=== PATIENT | male | born 1965 | race Caucasian/White ===

== ENCOUNTER 2021-04-01 14:18 | Inpatient (IN) ==
[2021-04-01] MEDS ORDERED: PROMETHAZINE 25 MG/ML VIAL IV PRN (16:07)
[2021-04-01] MEDS ORDERED: ACETAMINOPHEN 325 MG TABLET PO PRN (16:07)
[2021-04-01] MEDS ORDERED: oxyCODONE/APAP 5/325MG TABLET PO PRN (16:07)
[2021-04-01] MEDS ORDERED: morphine 4 MG/ML VIAL IV PRN (16:07)
[2021-04-01] MEDS ORDERED: BISACODYL 10 MG SUPP.RECT PR PRN (16:07)
[2021-04-01] MEDS ORDERED: ONDANSETRON 4 MG/2 ML VIAL IV PRN (16:07)
[2021-04-01] MEDS ORDERED: ZOLPIDEM 5 MG TABLET PO PRN (16:12)
[2021-04-01] MEDS ORDERED: CEFEPIME 1 GM VIAL IV SCH (16:15)
[2021-04-01] MEDS ORDERED: hydrALAZINE 20 MG/ML VIAL IV PRN (16:28)
[2021-04-01] MEDS ORDERED: VANCOMYCIN 1,000 MG in 0.9 % SODIUM CHLORIDE 250 ML IV SCH (16:30)
--- NOTE | 2021-04-01 16:35 | Internal Med History&Physical ---
HPI History of Present Illness Patient information: Note initiated : 04/01/21 at 4:29 pm Service Date, if different from initiated Date: [] Patient: Jb Ghotra a 55 y/o M admitted on 04/01/21 for CHF, Wounds. Chief Complaint: [left lower extremity cellulitis and diastolic CHF exacerbation.] History of present illness: Mr. Ghotra is a 55 year old M history of diastolic CHF, chronic bilateral lower extremity swelling, presenting with a couple day history of acute on chronic shortness of breath as well as 3 months history of worsening swelling and skin breakdown of the left lower extremities. Patient is complaining of acute on chronic shortness of breath over the past couple of days and he does not use oxygen at home. He denies any cough, chest pain, wheezing, or sputum production. He denies any fever or chills. In addition, he noticed worsening swelling, skin breakdown, as well as burning pain 7 out of 10 constant of his left lower extremities. He has not been treated with antibiotics. He presented to [facility] ER for his symptoms and he was admitted on March 31, 2021. The general surgeons was consulted and he recommended patient is to be transferred to our facility for dedicated wound care consult. Constitutional Constitutional: Absent chills, excessive sweating, fatigue, fever(s) and weakness EENT Eyes: Absent blurry vision, change in vision, loss of vision and other visual disturbances Ears: Absent decreased hearing and tinnitus Nose, mouth and throat: Absent abnormal hearing, dry mouth, headache(s), nasal congestion and sore throat Cardiovascular Cardiovascular: Absent chest pain, chest pain at rest, edema, irregular heart rhythm and palpatations Respiratory Respiratory: Present dyspnea; Absent cough and wheezing Gastrointestinal Gastrointestinal: Absent abdominal pain, constipation, diarrhea, nausea and vomiting Musculoskeletal Musculoskeletal: Absent back pain, deformity, limited range of motion, muscle cramps, muscle weakness and numbness Integumentary Integumentary: Present changing lesions, lesions, skin ulcer, swelling and wounds; Absent rash Additional comments: foul smelling Neurological Neurological: Absent focal weakness, headache(s) and numbness Psychiatric Psychiatric: Absent anxiety, depression and hallucinations PFSH PFSH All Active Problems (Updated 04/01/21 @ 16:30 by Ayaz Maguire MD) Left leg cellulitis (Acute) Cellulitis of both lower extremities (Acute) Acute on chronic diastolic (congestive) heart failure (Acute) Morbid obesity (Acute) MEDS/ALLERGIES Home Medications and Allergies Allergies Allergy/AdvReac Type Severity Reaction Status Date / Time No Known Allergies Allergy Verified 04/01/21 16:19 EXAM Constitutional General appearance: cooperative and no acute distress Head Head exam: Present atraumatic and normocephalic Additional comments: nasal cannula in place Eye Eye exam: Present EOMI and PERRL ENT ENT exam: Present mucous membranes moist, normal exam and normal external ear exam Neck Neck exam: Present normal inspection; Absent lymphadenopathy, tenderness and thyromegaly Respiratory Respiratory exam: Present decreased breath sounds; Absent accessory muscle use, respiratory distress and wheezes Cardiovascular Cardiovascular exam: Present normal rate and rhythm; Absent JVD GI/Abdominal GI/Abdominal exam: Present normal bowel sounds and soft; Absent organomegaly and tenderness Additional comments: Intertrigo rash of skin fold under the abdomen skin Rectal Rectal exam: Present deferred Additional comments: Castillo catheter in place Extremities Exam Extremities exam: Present full ROM, normal capillary refill and normal inspection; Absent tenderness Neurological Exam Neurological exam: Present alert, CN II-XII intact and oriented X3; Absent motor sensory deficit Psychiatric Psychiatric exam: Present normal affect and normal mood; Absent anxious and depressed Skin Skin exam: Present erythema; Absent intact Additional comments: Indurated, erythematic, swelling, and tenderness to palpation of the left lower extremities with multiple ulcers and foul smelling. Indurated and swelling of right lower extremity. A/P Assessment and plan (1) Acute on chronic diastolic (congestive) heart failure: Status: Acute (2) Left leg cellulitis: Status: Acute (3) Morbid obesity: Status: Acute Narrative A/P Narrative: Assessment and Plans: 1. Acute on chronic CHF exacerbation: Admit to inpatient telemetry Intake and output Daily weigh 2L/d fluid restriction Supplemental oxygen via nasal cannula titrate to achieve oxygen saturation >=92% 2D echocardiogram: Good systolic function with LVEF 55-60%, signs of diastolic dysfunction and pulmonary HTN Lasix 40mg IV BID Lisinopril 2.5mg PO daily Add beta madhavi when patient is out of exacerbation phrase Physical and occupational therapies 2. Left lower extremity cellulitis: Blood culture X2 Wound culture Serial lactic acid Procalcitonin level Vancomycin IV Percocet PRN moderate pain Morphine IV PRN severe pain Tylenol PRN fever cbc w/ auto diff in the morning to trend WBC level Consult wound care team Dr. Molina, recs. appreciated 3. Morbid obesity: Emergency Room Physician patient on the importance of life style modifications such as healthy diet and regular exercise in order to lose weight GI ppx: not currently indicated DVT ppx: Lovenox Code status: Full Prognosis: guarded Disposition: inpatient med surg tele; PT OT Time Spent With Patient Time: Total time spent is greater than 50% in coordination of care (as documented) at patient's floor/unit and/or counseling patient: Total time spent with greater than 50% in coordination of care (as documented) at patient's floor/unit and/or counseling patient:: 25 - 35 minutes
[2021-04-01] MEDS ORDERED: VANCOMYCIN PER PHARMACY IV SCH (17:00)
[2021-04-01] MEDS: FUROSEMIDE 40 MG/4 ML VIAL IV SCH (21:00)
[2021-04-01] MEDS: VANCOMYCIN 1,500 MG in 0.9 % SODIUM CHLORIDE 500 ML IV SCH (21:01)
[2021-04-01] MEDS: DOCUSATE SODIUM 100 MG CAPSULE PO SCH (21:09)
[2021-04-01] MEDS: SENNOSIDES 1 TABLET PO SCH (21:09)
[2021-04-01] MEDS: 0.9 % SODIUM CHLORIDE 10 ML SYRINGE IV SCH (21:09)
[2021-04-02] MEDS: 0.9 % SODIUM CHLORIDE 10 ML SYRINGE IV SCH ×3 (06:06→20:55)
[2021-04-02 06:42] LABS: Basophils # (Auto) 0.07 K/mcL (0.00-0.20); Basophils % (Auto) 0.5 % (0.0-2.0); Eosinophils % (Auto) 0.7 % (0.0-7.0); Hematocrit 39.3 % (41.0-55.0); Hemoglobin 10.8 g/dL (13.5-16.5); Lymphocytes # (Auto) 2.84 K/mcL (1.50-4.80); Lymphocytes % (Auto) 19.8 % (15.0-49.0); Mean Cell Volume 76.3 fL (80.0-100.0); Mean Corpuscular HGB Conc 27.5 g/dL (31.0-36.0); Mean Platelet Volume 9.9 fL (7.4-10.4); Monocytes # (Auto) 0.86 K/mcL (0.10-0.90); Platelet Count 299 K/mcL (140-440); RBC 5.15 M/mcL (4.50-5.90); Red Cell Distribution Width 18.6 % (11.5-14.5); WBC 14.3 K/mcL (4.5-11.0)
[2021-04-02 06:59] LABS: ALT/SGPT < 5 U/L (<40); AST/SGOT 8 U/L (<40); Albumin 2.6 gm/dL (3.2-5.2); Albumin/Globulin Ratio 1.2 (1.0-2.3); Alkaline Phosphatase 73 U/L (39-117); Bilirubin,Total 0.7 mg/dL (0.1-1.0); Blood Urea Nitrogen 11 mg/dL (6-20); Calcium 8.1 mg/dL (8.6-10.4); Carbon Dioxide 27 mmol/L (22-30); Chloride 100 mmol/L (96-108); Globulin 2.1 gm/dL (2.2-3.7); Glomerular Filtration Rate 99; Glucose 90 mg/dL (70-105)
[2021-04-02] MEDS: DOCUSATE SODIUM 100 MG CAPSULE PO SCH ×2 (08:20→19:44)
[2021-04-02 08:27] LABS: Erythrocyte Sedimentation Rate 3 mm/hr (0-15)
[2021-04-02] MEDS: ENOXAPARIN 40 MG/0.4 ML SYRINGE SQ SCH (08:59)
[2021-04-02] MEDS: ASPIRIN 81 MG TAB.CHEW PO SCH (08:59)
[2021-04-02] MEDS: LISINOPRIL 2.5 MG TABLET PO SCH (08:59)
[2021-04-02] MEDS: FUROSEMIDE 40 MG/4 ML VIAL IV SCH ×2 (08:59→20:55)
[2021-04-02] MEDS: VANCOMYCIN 1,500 MG in 0.9 % SODIUM CHLORIDE 500 ML IV SCH ×2 (09:00→20:55)
[2021-04-02] MEDS ORDERED: IBUPROFEN 200 MG TABLET PO PRN (09:27)
--- NOTE | 2021-04-02 09:32 | General Surgery Consult Note ---
HPI Data of Consult Consult date: 04/02/21 Primary Care Provider: Unknown Unknown Family Provider: I saw this patient in consultation, along with Presley Fierro RN, In Patient Wound Care Nurse. Reviewed EHR details and examined patient in Room 108, along with Dionna CHAVIS. Consult Narrative Patient Information: Note initiated : 04/02/21 at 9:24 am Service Date, if different from initiated Date: [] Patient: Jb Ghotra 55 y/o M admitted on 04/01/21 for CHF, Wounds. Chief Complaint: [] cc:: CC: Ayaz Maguire MD Constitutional Constitutional: Present weight gain and other (Drainage of lymphatic fluid from edematous legs and feet. ) Cardiovascular Cardiovascular: Present as per HPI, dyspnea on exertion, edema, leg edema and other (DIASTOLIC CHF. ) Integumentary Integumentary: Present lesions (Dry crusted scattered scales dermatitis of both legs and feet. ) and wounds (Drainage of lymphatic fluid from stage 1 skin abrasions, epidermal ulcers between scales WITHOUT purulence. CHRONIC skin contamination. ) PFSH PFSH All Active Problems Hypocalcemia (Acute) Hypochromic microcytic anemia (Acute) Atrial fibrillation (Acute) Left leg cellulitis (Acute) Cellulitis of both lower extremities (Acute) Acute on chronic diastolic (congestive) heart failure (Acute) Morbid obesity (Acute) MEDS/ALLERGIES Home Medications and Allergies Home Medications Medication Instructions Recorded Confirmed Type furosemide 40 - 60 mg PO DAILY MDD 60 04/01/21 04/01/21 History ibuprofen [Advil] 200 mg PO Q6H PRN MDD 800 04/01/21 04/01/21 History Allergies Allergy/AdvReac Type Severity Reaction Status Date / Time No Known Allergies Allergy Verified 04/01/21 16:19 Physical Examination Vital Signs Vital signs: Temp Pulse Resp BP Pulse Ox 97.7 F 85 18 150/89 91 04/02/21 08:00 04/02/21 08:00 04/02/21 08:00 04/02/21 08:00 04/02/21 08:00 Results Labs Result diagrams: 04/02/21 05:18 04/02/21 05:18 Labs: Abnormal lab results 04/02/21 04/02/21 Range/Units 05:18 05:18 WBC 14.3 H (4.5-11.0) K/mcL Hgb 10.8 L (13.5-16.5) g/dL Hct 39.3 L (41.0-55.0) % MCV 76.3 L (80.0-100.0) fL MCH 21.0 L (26.0-34.0) pg MCHC 27.5 L (31.0-36.0) g/dL RDW 18.6 H (11.5-14.5) % Absolute Neutrophils 10.44 H (1.80-8.00) K/mcL Calcium 8.1 L (8.6-10.4) mg/dL Total Protein 4.7 L (5.9-8.4) gm/dL Albumin 2.6 L (3.2-5.2) gm/dL Globulin 2.1 L (2.2-3.7) gm/dL Diabetes panel 04/02/21 Range/Units 05:18 Sodium 138 (133-145) mmol/L Potassium 3.4 (3.3-5.1) mmol/L Chloride 100 (96-108) mmol/L Carbon Dioxide 27 (22-30) mmol/L BUN 11 (6-20) mg/dL Creatinine 0.8 (0.7-1.2) mg/dL Glucose 90 (70-105) mg/dL Calcium 8.1 L (8.6-10.4) mg/dL AST 8 (<40) U/L ALT < 5 (<40) U/L Alkaline Phosphatase 73 (39-117) U/L Total Protein 4.7 L (5.9-8.4) gm/dL Albumin 2.6 L (3.2-5.2) gm/dL Calcium panel 04/02/21 Range/Units 05:18 Calcium 8.1 L (8.6-10.4) mg/dL Albumin 2.6 L (3.2-5.2) gm/dL Pituitary panel 04/02/21 Range/Units 05:18 Sodium 138 (133-145) mmol/L Potassium 3.4 (3.3-5.1) mmol/L Chloride 100 (96-108) mmol/L Carbon Dioxide 27 (22-30) mmol/L BUN 11 (6-20) mg/dL Creatinine 0.8 (0.7-1.2) mg/dL Glucose 90 (70-105) mg/dL Calcium 8.1 L (8.6-10.4) mg/dL Adrenal panel 04/02/21 Range/Units 05:18 Sodium 138 (133-145) mmol/L Potassium 3.4 (3.3-5.1) mmol/L Chloride 100 (96-108) mmol/L Carbon Dioxide 27 (22-30) mmol/L BUN 11 (6-20) mg/dL Creatinine 0.8 (0.7-1.2) mg/dL Glucose 90 (70-105) mg/dL Calcium 8.1 L (8.6-10.4) mg/dL Total Bilirubin 0.7 (0.1-1.0) mg/dL AST 8 (<40) U/L ALT < 5 (<40) U/L Alkaline Phosphatase 73 (39-117) U/L Total Protein 4.7 L (5.9-8.4) gm/dL Albumin 2.6 L (3.2-5.2) gm/dL All other labs normal. A/P Time Spent With Patient Time: Total time spent is greater than 50% in coordination of care (as documented) at patient's floor/unit and/or counseling patient:
--- NOTE | 2021-04-02 09:32 | Internal Med Progress Note ---
SUBJECTIVE Subjective Patient information: Note initiated : 04/02/21 at 9:28 am Service Date, if different from initiated Date: [] Patient: Jb Ghotra 55 y/o M admitted on 04/01/21 for CHF, Wounds. Chief Complaint: [CHF exacerbation, left leg cellulitis] 04/02/21: Patient is c/o mild to moderate burning pain of his left lower leg. c/o SOB. Still on 4L/min oxygen. Denies chest pain. Denies fever or chills or sweating. Wound and blood cultures no growth to date. Constitutional Vitals: Vital Signs Temp Pulse Resp BP Pulse Ox 36.5 C 85 18 150/89 91 04/02/21 08:00 04/02/21 08:00 04/02/21 08:00 04/02/21 08:00 04/02/21 08:00 Period Temp Pulse Resp BP Sys/Moya Pulse Ox Last 24 Hr 36.5 C-37.4 C 77-86 18-24 114-150/68-89 91-96 Intake and Output 04/01/21 04/02/21 04/02/21 21:59 05:59 13:59 Intake Total 400 650 480 Output Total 1800 300 Balance 400 -1150 180 Weight 224 kg Intake & Output: Intake & Output 04/01/21 04/02/21 04/02/21 21:59 05:59 13:59 Intake Total 400 650 480 Output Total 1800 300 Balance 400 -1150 180 Weight 224 kg Intake: IV 500 Vancomycin 1,500 mg In Sodium 500 Chloride 0.9% 500 ml @ 333.3 mls/hr IV Q12H [facility] Rx#: [id number] Oral 400 150 480 Output: Urine Catheter Amount 1800 300 Other: Meal Dinner Breakfast Percent of Meal Consumed 100% Feeding Ability Independent Urine Appearance Clear Sediment Uretheral (Castillo) Clear Urine Color Dark Joyce Dark Yellow Dark Joyce Light Joyce Uretheral (Castillo) Dark Yellow Urine Odor Strong General appearance: cooperative and no acute distress Head Head exam: Present atraumatic and normocephalic Eye Eye exam: Present EOMI and PERRL ENT ENT exam: Present mucous membranes moist, normal exam and normal external ear exam Additional comments: Nasal cannula in place Neck Neck exam: Present normal inspection; Absent lymphadenopathy, tenderness and thyromegaly Respiratory Respiratory exam: Present normal respiratory exam; Absent accessory muscle use, respiratory distress, stridor and wheezes Cardiovascular Cardiovascular exam: Present normal rate and rhythm; Absent JVD GI/Abdominal GI/Abdominal exam: Present normal bowel sounds and soft; Absent organomegaly and tenderness Rectal Rectal exam: Present deferred Additional comments: Castillo catheter in place Extremities Exam Extremities exam: Present full ROM, normal capillary refill and normal inspection; Absent tenderness Neurological Exam Neurological exam: Present alert, CN II-XII intact and oriented X3; Absent motor sensory deficit Psychiatric Psychiatric exam: Present normal affect and normal mood; Absent anxious and depressed Skin Skin exam: Present erythema; Absent dry and intact Additional comments: Indurated, swollen, tenderness to palpation, erythematic skin changes of the left lower extremity with multiple skin ulcers and foul smelling. Indurated, swollen right lower extremity Intertrigo skin changes in the abdominal skin folds. OBJ DATA Labs CBC & Chem 7: 04/02/21 05:18 04/02/21 05:18 Labs: Abnormal Lab Results 04/02/21 04/02/21 05:18 05:18 WBC 14.3 H Hgb 10.8 L Hct 39.3 L MCV 76.3 L MCH 21.0 L MCHC 27.5 L RDW 18.6 H Absolute Neutrophils 10.44 H Calcium 8.1 L Total Protein 4.7 L Albumin 2.6 L Globulin 2.1 L Meds: Medications Acetaminophen (Acetaminophen 325 Mg Tablet) 650 mg PO Q6HP PRN; Protocol PRN Reason: Per Pain Protocol/Fever > 101 Aspirin (Aspirin 81 Mg Tab.Chew) 81 mg PO DAILY [facility] Last Admin: 04/02/21 08:59 Dose: 81 mg Documented by: Bisacodyl (Bisacodyl 10 Mg Supp.Rect) 10 mg ME Q2-3DAYS PRN PRN Reason: Constipation Calcium Carbonate/Glycine (Calcium Carbonate 500 Mg Tab.Chew) 500 mg PO BID [facility] Docusate Sodium (Docusate Sodium 100 Mg Capsule) 100 mg PO BID [facility] Last Admin: 04/02/21 08:20 Dose: Not Given Documented by: Enoxaparin Sodium (Enoxaparin 40 Mg/0.4 Ml Syringe) 40 mg SQ DAILY [facility] Last Admin: 04/02/21 08:59 Dose: 40 mg Documented by: Furosemide (Furosemide 40 Mg/4 Ml Vial) 40 mg IV Q12 [facility] Last Admin: 04/02/21 08:59 Dose: 40 mg Documented by: Hydralazine HCl (Hydralazine 20 Mg/Ml Vial) 10 mg IV Q4-6HP PRN PRN Reason: Hypertension Vancomycin HCl 1,500 mg/ (Sodium Chloride) 500 mls @ 333.3 mls/hr IV Q12H [facility] Last Admin: 04/02/21 09:00 Dose: 333.3 mls/hr Documented by: Ibuprofen (Ibuprofen 200 Mg Tablet) 200 mg PO Q6HP PRN PRN Reason: Pain Lisinopril (Lisinopril 2.5 Mg Tablet) 2.5 mg PO DAILY [facility] Last Admin: 04/02/21 08:59 Dose: 2.5 mg Documented by: Morphine Sulfate (Morphine 4 Mg/Ml Vial) 2 mg IV Q4HP PRN; Protocol PRN Reason: Per Pain Protocol Ondansetron HCl (Ondansetron 4 Mg/2 Ml Vial) 4 mg IV Q6HP PRN PRN Reason: Nausea And Vomiting Oxycodone/Acetaminophen (Oxycodone/Apap 5/325mg Tablet) 1 tab PO Q4HP PRN; Protocol PRN Reason: Per Pain Protocol Pneumococcal Polyvalent Vaccine (Pneumococcal 23-Airam P-Sac Vac 0.5 Ml Syringe) 0.5 ml IM .ONCE ONE Stop: 04/03/21 10:01 Promethazine HCl (Promethazine 25 Mg/Ml Vial) 12.5 mg IV Q6HP PRN PRN Reason: Nausea And Vomiting Senna (Sennosides 1 Tablet) 2 tab PO HS [facility] Last Admin: 04/01/21 21:09 Dose: Not Given Documented by: Sodium Chloride (0.9 % Sodium Chloride 10 Ml Syringe) 10 ml IV Q8 [facility] Last Admin: 04/02/21 06:06 Dose: Not Given Documented by: Vancomycin HCl (Vancomycin Per Pharmacy) 1 order IV UD [facility] Zolpidem Tartrate (Zolpidem 5 Mg Tablet) 5 mg PO HSP PRN PRN Reason: Insomnia A/P Assessment and plan (1) Morbid obesity: Status: Acute (2) Acute on chronic diastolic (congestive) heart failure: Status: Acute (3) Cellulitis of both lower extremities: Status: Acute (4) Left leg cellulitis: Status: Acute (5) Atrial fibrillation: Status: Acute (6) Hypochromic microcytic anemia: Status: Acute (7) Hypocalcemia: Status: Acute Narrative A/P Narrative: A/P Narrative: Assessment and Plans: 1. Acute on chronic CHF exacerbation: Stays in inpatient telemetry Intake and output Daily weigh 2L/d fluid restriction Supplemental oxygen via nasal cannula titrate to achieve oxygen saturation >=92% 2D echocardiogram: Good systolic function with LVEF 55-60%, signs of diastolic d ysfunction and pulmonary HTN Lasix 40mg IV BID, consider switching to oral Lasix tomorrow Lisinopril 2.5mg PO daily Add beta madhavi when patient is out of exacerbation phrase Physical and occupational therapies 2. Left lower extremity cellulitis: Blood culture X2 Wound culture Serial lactic acid Procalcitonin level Vancomycin IV Percocet PRN moderate pain Morphine IV PRN severe pain Tylenol PRN fever cbc w/ auto diff in the morning to trend WBC level Consult wound care team Dr. Molina, recs. appreciated Consult ID Dr. Luna, recs. appreciated 3. 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 Atrial fibrillation: [id number] score of 1 Add Aspirin, no anticoagulation at this point Add beta madhavi when it is over the CHF exacerbation phrase is over 5. Microcytic hypochromic anemia: cbc w/ auto diff in the morning to trend H/H; transfuse pRBC if hemoglobin <7.0, active bleeding, or symptomatic Iron panel Vitamin B12 level Folate level 6. Hypocalcemia: Calcium carbonate oral replacement GI ppx: not currently indicated DVT ppx: Lovenox Code status: Full Prognosis: guarded Disposition: inpatient med surg tele; PT OT Time Spent With Patient Time: Total time spent is greater than 50% in coordination of care (as documented) at patient's floor/unit and/or counseling patient: Total time spent with greater than 50% in coordination of care (as documented) at patient's floor/unit and/or counseling patient:: 15 - 24 minutes
[2021-04-02] MEDS: CALCIUM CARBONATE 500 MG TAB.CHEW PO SCH ×2 (09:40→20:55)
--- NOTE | 2021-04-02 09:59 | General Surgery Consult Note ---
HPI Data of Consult Consult date: 04/02/21 Primary Care Provider: Unknown Unknown Consult Narrative Patient Information: Note initiated : 04/02/21 at 9:48 am Service Date, if different from initiated Date: [] Patient: Jb Ghotra 55 y/o M admitted on 04/01/21 for CHF, Wounds. Chief Complaint: [] cc:: CC: Ayaz Maguire MD [facility] PFS All Active Problems Hypocalcemia (Acute) Hypochromic microcytic anemia (Acute) Atrial fibrillation (Acute) Left leg cellulitis (Acute) Cellulitis of both lower extremities (Acute) Acute on chronic diastolic (congestive) heart failure (Acute) Morbid obesity (Acute) MEDS/ALLERGIES Home Medications and Allergies Home Medications Medication Instructions Recorded Confirmed Type furosemide 40 - 60 mg PO DAILY MDD 60 04/01/21 04/01/21 History ibuprofen [Advil] 200 mg PO Q6H PRN MDD 800 04/01/21 04/01/21 History Allergies Allergy/AdvReac Type Severity Reaction Status Date / Time No Known Allergies Allergy Verified 04/01/21 16:19 Physical Examination Vital Signs Vital signs: Temp Pulse Resp BP Pulse Ox 97.7 F 85 18 150/89 91 04/02/21 08:00 04/02/21 08:00 04/02/21 08:00 04/02/21 08:00 04/02/21 08:00 General physical appearance General physical exam: no distress, no pain and other (SUPER MORBIDLY OBESE. Able to sit by the edge of bed, unassisted. ) Eyes Eye exam: PERRL and normal ocular movement ENT ENT exam: normal pinna, normal nares, no congestion and other (Oxygen by NC) Head Head exam IM: Present atraumatic and normocephalic Neck Neck exam: no masses and no venous distension Cardiovascular Cardiovascular exam IM: Present irregular rhythm Peripheral pulses: 0: dorsalis pedis (L) (Moderate /svere lymphedema of LLE), dorsalis pedis (R) (Moderate Lymphedema RLE), posterior tibialis (L) (As above) and posterior tibialis (R) (As above) Respiratory Respiratory exam: normal respiratory effort and other (Clear speech. Can count 1-20 and 10-1 without SOB. O2 by NC. No cougn, NO expectoration.) Abdomen Abdomen: Present soft and non tender Results Labs Result diagrams: 04/02/21 05:18 04/02/21 05:18 Labs: Abnormal lab results 04/02/21 04/02/21 Range/Units 05:18 05:18 WBC 14.3 H (4.5-11.0) K/mcL Hgb 10.8 L (13.5-16.5) g/dL Hct 39.3 L (41.0-55.0) % MCV 76.3 L (80.0-100.0) fL MCH 21.0 L (26.0-34.0) pg MCHC 27.5 L (31.0-36.0) g/dL RDW 18.6 H (11.5-14.5) % Absolute Neutrophils 10.44 H (1.80-8.00) K/mcL Calcium 8.1 L (8.6-10.4) mg/dL Total Protein 4.7 L (5.9-8.4) gm/dL Albumin 2.6 L (3.2-5.2) gm/dL Globulin 2.1 L (2.2-3.7) gm/dL Diabetes panel 04/02/21 Range/Units 05:18 Sodium 138 (133-145) mmol/L Potassium 3.4 (3.3-5.1) mmol/L Chloride 100 (96-108) mmol/L Carbon Dioxide 27 (22-30) mmol/L BUN 11 (6-20) mg/dL Creatinine 0.8 (0.7-1.2) mg/dL Glucose 90 (70-105) mg/dL Calcium 8.1 L (8.6-10.4) mg/dL AST 8 (<40) U/L ALT < 5 (<40) U/L Alkaline Phosphatase 73 (39-117) U/L Total Protein 4.7 L (5.9-8.4) gm/dL Albumin 2.6 L (3.2-5.2) gm/dL Calcium panel 04/02/21 Range/Units 05:18 Calcium 8.1 L (8.6-10.4) mg/dL Albumin 2.6 L (3.2-5.2) gm/dL Pituitary panel 04/02/21 Range/Units 05:18 Sodium 138 (133-145) mmol/L Potassium 3.4 (3.3-5.1) mmol/L Chloride 100 (96-108) mmol/L Carbon Dioxide 27 (22-30) mmol/L BUN 11 (6-20) mg/dL Creatinine 0.8 (0.7-1.2) mg/dL Glucose 90 (70-105) mg/dL Calcium 8.1 L (8.6-10.4) mg/dL Adrenal panel 04/02/21 Range/Units 05:18 Sodium 138 (133-145) mmol/L Potassium 3.4 (3.3-5.1) mmol/L Chloride 100 (96-108) mmol/L Carbon Dioxide 27 (22-30) mmol/L BUN 11 (6-20) mg/dL Creatinine 0.8 (0.7-1.2) mg/dL Glucose 90 (70-105) mg/dL Calcium 8.1 L (8.6-10.4) mg/dL Total Bilirubin 0.7 (0.1-1.0) mg/dL AST 8 (<40) U/L ALT < 5 (<40) U/L Alkaline Phosphatase 73 (39-117) U/L Total Protein 4.7 L (5.9-8.4) gm/dL Albumin 2.6 L (3.2-5.2) gm/dL All other labs normal. A/P Narrative A/P Narrative: Assessment: Super morbid obesity Diastolic CHF Lymphedema of LE. Left >> Right extends from thighs to toes. Dry scales Dermatitis / Nodules.Both LE Left >> Right Multiple chronic comorbidities. See PMH above. Patient received COVID shots X 2. Second dose in October 2020 Plan: Local wound Care as discussed with nursing staff See wound care orders. MIST with VASHE Bacitracin ointment to legs after VASHE treatment. Will follow patient along with Hospitalist Physician Time Spent With Patient Time: Total time spent is greater than 50% in coordination of care (as docum ented) at patient's floor/unit and/or counseling patient: Total time spent with greater than 50% in coordination of care (as documented) at patient's floor/unit and/or counseling patient:: Greater than 35 minutes
[2021-04-02] MEDS: SENNOSIDES 1 TABLET PO SCH (19:44)
[2021-04-03] MEDS: 0.9 % SODIUM CHLORIDE 10 ML SYRINGE IV SCH ×3 (05:37→21:00)
[2021-04-03 07:21] LABS: Basophils # (Auto) 0.06 K/mcL (0.00-0.20); Basophils % (Auto) 0.5 % (0.0-2.0); Eosinophils # (Auto) 0.19 K/mcL (0.00-0.70); Eosinophils % (Auto) 1.4 % (0.0-7.0); Hematocrit 39.3 % (41.0-55.0); Hemoglobin 10.7 g/dL (13.5-16.5); Lymphocytes # (Auto) 2.94 K/mcL (1.50-4.80); Lymphocytes % (Auto) 22.2 % (15.0-49.0); Mean Cell Volume 75.6 fL (80.0-100.0); Mean Corpuscular HGB Conc 27.2 g/dL (31.0-36.0); Mean Platelet Volume 10.1 fL (7.4-10.4); Monocytes % (Auto) 6.8 % (1.0-12.0); Neutrophils % (Auto) 69.1 % (38.0-78.0); Platelet Count 301 K/mcL (140-440); Red Cell Distribution Width 18.4 % (11.5-14.5); WBC 13.3 K/mcL (4.5-11.0)
[2021-04-03 07:46] LABS: ALT/SGPT 5 U/L (<40); AST/SGOT 9 U/L (<40); Albumin 2.6 gm/dL (3.2-5.2); Albumin/Globulin Ratio 1.3 (1.0-2.3); Alkaline Phosphatase 78 U/L (39-117); Bilirubin,Total 0.4 mg/dL (0.1-1.0); Blood Urea Nitrogen 10 mg/dL (6-20); Calcium 8.1 mg/dL (8.6-10.4); Carbon Dioxide 30 mmol/L (22-30); Chloride 101 mmol/L (96-108); Glomerular Filtration Rate 111; Glucose 96 mg/dL (70-105); Iron 15 ug/dL (61-157); TIBC Calculation 254 ug/dl (228-428); Transferrin % Saturation 6 % (20-50)
[2021-04-03] MEDS: DOCUSATE SODIUM 100 MG CAPSULE PO SCH ×2 (08:21→21:08)
[2021-04-03] MEDS: CALCIUM CARBONATE 500 MG TAB.CHEW PO SCH ×2 (08:21→21:00)
[2021-04-03] MEDS: ASPIRIN 81 MG TAB.CHEW PO SCH (08:21)
[2021-04-03] MEDS: LISINOPRIL 2.5 MG TABLET PO SCH (08:21)
[2021-04-03] MEDS: FUROSEMIDE 40 MG/4 ML VIAL IV SCH (08:21)
[2021-04-03] MEDS: ENOXAPARIN 40 MG/0.4 ML SYRINGE SQ SCH (08:22)
[2021-04-03] MEDS ORDERED: PNEUMOCOCCAL 23-VAL P-SAC VAC 0.5 ML SYRINGE IM ONE (10:00)
--- NOTE | 2021-04-03 11:26 | Internal Med Progress Note ---
SUBJECTIVE Subjective Patient information: Note initiated : 04/03/21 at 11:25 am Service Date, if different from initiated Date: [] Patient: Jb Ghotra 55 y/o M admitted on 04/01/21 for CHF, Wounds. Chief Complaint: [CHF exacerbation, left leg cellulitis] 04/02/21: Patient is c/o mild to moderate burning pain of his left lower leg. c/o SOB. Still on 4L/min oxygen. Denies chest pain. Denies fever or chills or sweating. Wound and blood cultures no growth to date. 04/03/21: Afebrile overnight. Wound culture growing gram negative bacillus. On 3L/min oxygen. Denies leg pain. Denies fever or chills. Constitutional Vitals: Vital Signs Temp Pulse Resp BP Pulse Ox 36.4 C 79 20 123/73 94 04/03/21 07:38 04/03/21 07:38 04/03/21 07:38 04/03/21 07:38 04/03/21 07:38 Period Temp Pulse Resp BP Sys/Moya Pulse Ox Last 24 Hr 36.2 C-37.1 C 76-86 18-24 117-140/71-85 91-97 Intake and Output 04/02/21 04/03/21 04/03/21 21:59 05:59 13:59 Intake Total 720 880 Output Total 1400 2600 1900 Balance -680 -1720 -1900 Weight 224 kg Intake & Output: Intake & Output 04/02/21 04/03/21 04/03/21 21:59 05:59 13:59 Intake Total 720 880 Output Total 1400 2600 1900 Balance -680 -1720 -1900 Weight 224 kg Intake: IV 500 Vancomycin 1,500 mg In Sodium 500 Chloride 0.9% 500 ml @ 333.3 mls/hr IV Q12H [facility] Rx#: [id number] Oral 720 380 Output: Urine Catheter Amount 1400 2600 1900 Other: Meal Dinner Breakfast Percent of Meal Consumed 100% 100% Feeding Ability Independent Urine Appearance Clear Clear Clear Uretheral (Castillo) Clear Clear Urine Color Bright Yellow Dark Yellow Bright Yellow Uretheral (Castillo) Light Joyce Straw Urine Odor Normal Uretheral (Castillo) Normal Stool Size Moderate Stool Color Brown Stool Consistency Normal for Patient Formed General appearance: cooperative and no acute distress Head Head exam: Present atraumatic and normocephalic Eye Eye exam: Present EOMI and PERRL ENT ENT exam: Present mucous membranes moist, normal exam and normal external ear exam Additional comments: Nasal cannula in place Neck Neck exam: Present normal inspection; Absent lymphadenopathy, tenderness and thyromegaly Respiratory Respiratory exam: Absent accessory muscle use, respiratory distress and wheezes Additional comments: Bibasilar crackles Cardiovascular Cardiovascular exam: Present irregular rhythm; Absent JVD GI/Abdominal GI/Abdominal exam: Present normal bowel sounds and soft; Absent organomegaly and tenderness Rectal Rectal exam: Present deferred Additional comments: Castillo catheter in place. Extremities Exam Extremities exam: Present full ROM, normal capillary refill and normal inspection; Absent tenderness Neurological Exam Neurological exam: Present alert, CN II-XII intact and oriented X3; Absent motor sensory deficit Psychiatric Psychiatric exam: Present normal affect and normal mood; Absent anxious and depressed Skin Skin exam: Present dry; Absent intact Additional comments: Left lower leg wrapped in surgical dressing. +foul smelling Left thigh indurated, erythematic, warm to touch Abdominal skin fold intertrigo region covered with zinc oxide dry poweder OBJ DATA Labs CBC & Chem 7: 04/03/21 05:12 04/03/21 05:12 Labs: Abnormal Lab Results 04/03/21 04/03/21 04/02/21 05:12 05:12 05:19 WBC 13.3 H Hgb 10.7 L Hct 39.3 L MCV 75.6 L MCH 20.6 L MCHC 27.2 L RDW 18.4 H Absolute Neutrophils 9.16 H Creatinine 0.6 L Calcium 8.1 L Iron 15 L Transferrin % Sat 6 L Total Protein 4.6 L Albumin 2.6 L Globulin 2.0 L Procalcitonin 0.20 H 04/02/21 04/02/21 05:18 05:18 WBC 14.3 H Hgb 10.8 L Hct 39.3 L MCV 76.3 L MCH 21.0 L MCHC 27.5 L RDW 18.6 H Absolute Neutrophils 10.44 H Creatinine Calcium 8.1 L Iron Transferrin % Sat Total Protein 4.7 L Albumin 2.6 L Globulin 2.1 L Procalcitonin Meds: Medications Acetaminophen (Acetaminophen 325 Mg Tablet) 650 mg PO Q6HP PRN; Protocol PRN Reason: Per Pain Protocol/Fever > 101 Aspirin (Aspirin 81 Mg Tab.Chew) 81 mg PO DAILY [facility] Last Admin: 04/03/21 08:21 Dose: 81 mg Documented by: Bisacodyl (Bisacodyl 10 Mg Supp.Rect) 10 mg [place] Q2-3DAYS PRN PRN Reason: Constipation Calcium Carbonate/Glycine (Calcium Carbonate 500 Mg Tab.Chew) 500 mg PO BID [facility] Last Admin: 04/03/21 08:21 Dose: 500 mg Documented by: Docusate Sodium (Docusate Sodium 100 Mg Capsule) 100 mg PO BID [facility] Last Admin: 04/03/21 08:21 Dose: 100 mg Documented by: Enoxaparin Sodium (Enoxaparin 40 Mg/0.4 Ml Syringe) 40 mg SQ DAILY [facility] Last Admin: 04/03/21 08:22 Dose: 40 mg Documented by: Furosemide (Furosemide 40 Mg Tablet) 40 mg PO BIDD [facility] Hydralazine HCl (Hydralazine 20 Mg/Ml Vial) 10 mg IV Q4-6HP PRN PRN Reason: Hypertension Vancomycin HCl 1,500 mg/ (Sodium Chloride) 500 mls @ 333.3 mls/hr IV Q12H [facility] Last Infusion: 04/02/21 22:30 Dose: Infused Documented by: Ibuprofen (Ibuprofen 200 Mg Tablet) 200 mg PO Q6HP PRN PRN Reason: Pain Lisinopril (Lisinopril 2.5 Mg Tablet) 2.5 mg PO DAILY [facility] Last Admin: 04/03/21 08:21 Dose: 2.5 mg Documented by: Morphine Sulfate (Morphine 4 Mg/Ml Vial) 2 mg IV Q4HP PRN; Protocol PRN Reason: Per Pain Protocol Ondansetron HCl (Ondansetron 4 Mg/2 Ml Vial) 4 mg IV Q6HP PRN PRN Reason: Nausea And Vomiting Oxycodone/Acetaminophen (Oxycodone/Apap 5/325mg Tablet) 1 tab PO Q4HP PRN; Protocol PRN Reason: Per Pain Protocol Promethazine HCl (Promethazine 25 Mg/Ml Vial) 12.5 mg IV Q6HP PRN PRN Reason: Nausea And Vomiting Senna (Sennosides 1 Tablet) 2 tab PO [facility] Last Admin: 04/02/21 19:44 Dose: Not Given Documented by: Sodium Chloride (0.9 % Sodium Chloride 10 Ml Syringe) 10 ml IV Q8 [facility] Last Admin: 04/03/21 05:37 Dose: Not Given Documented by: Vancomycin HCl (Vancomycin Per Pharmacy) 1 order IV UD [facility] Zolpidem Tartrate (Zolpidem 5 Mg Tablet) 5 mg PO HSP PRN PRN Reason: Insomnia A/P Assessment and plan (1) Morbid obesity: Status: Acute (2) Acute on chronic diastolic (congestive) heart failure: Status: Acute (3) Cellulitis of both lower extremities: Status: Acute (4) Left leg cellulitis: Status: Acute (5) Atrial fibrillation: Status: Acute (6) Hypochromic microcytic anemia: Status: Acute (7) Hypocalcemia: Status: Acute Narrative A/P Narrative: A/P Narrative: Assessment and Plans: 1. Acute on chronic CHF exacerbation: Stays in inpatient telemetry Intake and output Daily weigh 2L/d fluid restriction Supplemental oxygen via nasal cannula titrate to achieve oxygen saturation >=92% 2D echocardiogram: Good systolic function with LVEF 55-60%, signs of diastolic dysfunction and pulmonary HTN Lasix 40mg IV-->PO BID today Lisinopril 2.5mg PO daily Add beta madhavi when patient is out of exacerbation phrase Physical and occupational therapies 2. Left lower extremity cellulitis: Blood culture X2 no growth to date Wound culture growing gram negative bacillus Serial lactic acid Procalcitonin level Vancomycin IV Percocet PRN moderate pain Morphine IV PRN severe pain Tylenol PRN fever cbc w/ auto diff in the morning to trend WBC level Consult wound care team Dr. Molina, recs. appreciated. No surgical d ebridement. Continue wound care, mist therapy, and antibiotics Consult ID Dr. Luna, recs. appreciated 3. 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 Atrial fibrillation: [id number] score of 1 Add Aspirin, no anticoagulation at this point Add beta madhavi when it is over the CHF exacerbation phrase is over 5. Microcytic hypochromic anemia: cbc w/ auto diff in the morning to trend H/H; transfuse pRBC if hemoglobin <7.0, active bleeding, or symptomatic Iron panel Vitamin B12 level Folate level 6. Hypocalcemia: Calcium carbonate oral replacement GI ppx: not currently indicated DVT ppx: Lovenox Code status: Full Prognosis: stable Disposition: inpatient med surg tele; PT OT Time Spent With Patient Time: Total time spent is greater than 50% in coordination of care (as documented) at patient's floor/unit and/or counseling patient:
[2021-04-03] MEDS: VANCOMYCIN 1,500 MG in 0.9 % SODIUM CHLORIDE 500 ML IV SCH ×2 (11:37→21:00)
--- NOTE | 2021-04-03 11:55 | Internal Med Progress Note ---
SUBJECTIVE Subjective Patient information: Note initiated : 04/03/21 at 11:55 am Service Date, if different from initiated Date: [] Patient: Jb Ghotra 55 y/o M admitted on 04/01/21 for CHF, Wounds. Chief Complaint: [] Constitutional Vitals: Vital Signs Temp Pulse Resp BP Pulse Ox 36.4 C 79 20 123/73 94 04/03/21 07:38 04/03/21 07:38 04/03/21 07:38 04/03/21 07:38 04/03/21 07:38 Period Temp Pulse Resp BP Sys/Moya Pulse Ox Last 24 Hr 36.2 C-37.1 C 76-86 18-24 117-140/71-85 91-97 Intake and Output 04/02/21 04/03/21 04/03/21 21:59 05:59 13:59 Intake Total 720 880 Output Total 1400 2600 1900 Balance -680 -1720 -1900 Weight 224 kg Intake & Output: Intake & Output 04/02/21 04/03/21 04/03/21 21:59 05:59 13:59 Intake Total 720 880 Output Total 1400 2600 1900 Balance -680 -1720 -1900 Weight 224 kg Intake: IV 500 Vancomycin 1,500 mg In Sodium 500 Chloride 0.9% 500 ml @ 333.3 mls/hr IV Q12H [facility] Rx#: [id number] Oral 720 380 Output: Urine Catheter Amount 1400 2600 1900 Other: Meal Dinner Breakfast Percent of Meal Consumed 100% 100% Feeding Ability Independent Urine Appearance Clear Clear Clear Uretheral (Castillo) Clear Clear Urine Color Bright Yellow Dark Yellow Bright Yellow Uretheral (Castillo) Light Joyce Straw Urine Odor Normal Uretheral (Castillo) Normal Stool Size Moderate Stool Color Brown Stool Consistency Normal for Patient Formed OBJ DATA Labs CBC & Chem 7: 04/03/21 05:12 04/03/21 05:12 Labs: Abnormal Lab Results 04/03/21 04/03/21 04/02/21 05:12 05:12 05:19 WBC 13.3 H Hgb 10.7 L Hct 39.3 L MCV 75.6 L MCH 20.6 L MCHC 27.2 L RDW 18.4 H Absolute Neutrophils 9.16 H Creatinine 0.6 L Calcium 8.1 L Iron 15 L Transferrin % Sat 6 L Total Protein 4.6 L Albumin 2.6 L Globulin 2.0 L Procalcitonin 0.20 H 04/02/21 04/02/21 05:18 05:18 WBC 14.3 H Hgb 10.8 L Hct 39.3 L MCV 76.3 L MCH 21.0 L MCHC 27.5 L RDW 18.6 H Absolute Neutrophils 10.44 H Creatinine Calcium 8.1 L Iron Transferrin % Sat Total Protein 4.7 L Albumin 2.6 L Globulin 2.1 L Procalcitonin Meds: Medications Acetaminophen (Acetaminophen 325 Mg Tablet) 650 mg PO Q6HP PRN; Protocol PRN Reason: Per Pain Protocol/Fever > 101 Aspirin (Aspirin 81 Mg Tab.Chew) 81 mg PO DAILY [facility] Last Admin: 04/03/21 08:21 Dose: 81 mg Documented by: Bisacodyl (Bisacodyl 10 Mg Supp.Rect) [address] Q2-3DAYS PRN PRN Reason: Constipation Calcium Carbonate/Glycine (Calcium Carbonate 500 Mg Tab.Chew) 500 mg PO BID [facility] Last Admin: 04/03/21 08:21 Dose: 500 mg Documented by: Docusate Sodium (Docusate Sodium 100 Mg Capsule) 100 mg PO BID [facility] Last Admin: 04/03/21 08:21 Dose: 100 mg Documented by: Enoxaparin Sodium (Enoxaparin 40 Mg/0.4 Ml Syringe) 40 mg SQ DAILY [facility] Last Admin: 04/03/21 08:22 Dose: 40 mg Documented by: Furosemide (Furosemide 40 Mg Tablet) 40 mg PO BIDD [facility] Hydralazine HCl (Hydralazine 20 Mg/Ml Vial) 10 mg IV Q4-6HP PRN PRN Reason: Hypertension Vancomycin HCl 1,500 mg/ (Sodium Chloride) 500 mls @ 333.3 mls/hr IV Q12H [facility] Last Admin: 04/03/21 11:37 Dose: 333 mls/hr Documented by: Ibuprofen (Ibuprofen 200 Mg Tablet) 200 mg PO Q6HP PRN PRN Reason: Pain Lisinopril (Lisinopril 2.5 Mg Tablet) 2.5 mg PO DAILY [facility] Last Admin: 04/03/21 08:21 Dose: 2.5 mg Documented by: Morphine Sulfate (Morphine 4 Mg/Ml Vial) 2 mg IV Q4HP PRN; Protocol PRN Reason: Per Pain Protocol Ondansetron HCl (Ondansetron 4 Mg/2 Ml Vial) 4 mg IV Q6HP PRN PRN Reason: Nausea And Vomiting Oxycodone/Acetaminophen (Oxycodone/Apap 5/325mg Tablet) 1 tab PO Q4HP PRN; Protocol PRN Reason: Per Pain Protocol Promethazine HCl (Promethazine 25 Mg/Ml Vial) 12.5 mg IV Q6HP PRN PRN Reason: Nausea And Vomiting Senna (Sennosides 1 Tablet) 2 tab PO HS [facility] Last Admin: 04/02/21 19:44 Dose: Not Given Documented by: Sodium Chloride (0.9 % Sodium Chloride 10 Ml Syringe) 10 ml IV Q8 [facility] Last Admin: 04/03/21 05:37 Dose: Not Given Documented by: Vancomycin HCl (Vancomycin Per Pharmacy) 1 order IV UD [facility] Zolpidem Tartrate (Zolpidem 5 Mg Tablet) 5 mg PO HSP PRN PRN Reason: Insomnia A/P Assessment and plan (1) Morbid obesity: Status: Acute (2) Acute on chronic diastolic (congestive) heart failure: Status: Acute (3) Cellulitis of both lower extremities: Status: Acute (4) Left leg cellulitis: Status: Acute (5) Atrial fibrillation: Status: Acute (6) Hypochromic microcytic anemia: Status: Acute (7) Hypocalcemia: Status: Acute Narrative A/P Narrative: A/P Narrative: Assessment and Plans: 1. Acute on chronic CHF exacerbation: Stays in inpatient telemetry Intake and output Daily weigh 2L/d fluid restriction Supplemental oxygen via nasal cannula titrate to achieve oxygen saturation >=92% 2D echocardiogram: Good systolic function with LVEF 55-60%, signs of diastolic dysfunction and pulmonary HTN Lasix 40mg IV-->PO BID today Lisinopril 2.5mg PO daily Add beta madhavi when patient is out of exacerbation phrase Physical and occupational therapies 2. Left lower extremity cellulitis: Blood culture X2 no growth to date Wound culture growing gram negative bacillus Serial lactic acid Procalcitonin level Vancomycin IV Percocet PRN moderate pain Morphine IV PRN severe pain Tylenol PRN fever cbc w/ auto diff in the morning to trend WBC level Consult wound care team Dr. Molina, recs. appreciated. No surgical debridement. Continue wound care, mist therapy, and antibiotics Consult ID Dr. Luna, recs. appreciated 3. 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 Atrial fibrillation: [id number] score of 1 Add Aspirin, no anticoagulation at this point Add beta madhavi when it is over the CHF exacerbation phrase is over 5. Microcytic hypochromic anemia: cbc w/ auto diff in the morning to trend H/H; transfuse pRBC if hemoglobin <7.0, active bleeding, or symptomatic Iron panel Vitamin B12 level Folate level 6. Hypocalcemia: Calcium carbonate oral replacement GI ppx: not currently indicated DVT ppx: Lovenox Code status: Full Prognosis: stable Disposition: inpatient med surg tele; PT OT Time Spent With Patient Time: Total time spent is greater than 50% in coordination of care (as documented) at patient's floor/unit and/or counseling patient:
--- NOTE | 2021-04-03 12:23 | EKG ---
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 Measurements Intervals [place] Rate: 83 P: AR: QRS: 100 QRSD: 128 T: QT: 348 QTc: 409 Interpretive Statements ATRIAL FIBRILLATION RBBB AND LPFB ANTERIOR INFARCT, AGE INDETERMINATE NO PRIOR TRACING FOR COMPARISON ABNORMAL ECG Electronically Signed On 04-03-2021 12:22:32 PDT by Hermann Lara M.D. /store/[email or web address]/[id number]
--- NOTE | 2021-04-03 13:08 | General Surgery Progress Note ---
SUBJECTIVE Subjective Patient information: Note initiated : 04/03/21 at 1:04 pm Service Date, if different from initiated Date: [] Patient: Jb Ghotra 55 y/o M admitted on 04/01/21 for CHF, Wounds. Chief Complaint: [] Additional PMFSH (Level 3 Only): Patient seen on AM rounds. Progress reviewed, Ambulating in hallway with Physical Therapist. Tolerating MIST therapy for LEFT leg wounds, Constitutional Vitals: Vital Signs Temp Pulse Resp BP Pulse Ox 98.6 F 82 18 111/65 96 04/03/21 12:00 04/03/21 12:00 04/03/21 12:00 04/03/21 12:00 04/03/21 12:00 Period Temp Pulse Resp BP Sys/Moya Pulse Ox Last 24 Hr 97.1 F-98.7 F 76-83 18-24 111-140/65-79 91-96 Intake and Output 04/02/21 04/03/21 04/03/21 21:59 05:59 13:59 Intake Total 720 880 Output Total 1400 2600 1900 Balance -680 -1720 -1900 Weight 493 lb 13.367 oz Intake & Output: Intake & Output 04/02/21 04/03/21 04/03/21 21:59 05:59 13:59 Intake Total 720 880 Output Total 1400 2600 1900 Balance -680 -1720 -1900 Weight 493 lb 13.367 oz Intake: IV 500 Vancomycin 1,500 mg In Sodium 500 Chloride 0.9% 500 ml @ 333.3 mls/hr IV Q12H [facility] Rx#: [id number] Oral 720 380 Output: Urine Catheter Amount 1400 2600 1900 Other: Meal Dinner Breakfast Percent of Meal Consumed 100% 100% Feeding Ability Independent Urine Appearance Clear Clear Clear Uretheral (Castillo) Clear Clear Urine Color Bright Yellow Dark Yellow Bright Yellow Uretheral (Castillo) Light Joyce Straw Urine Odor Normal Uretheral (Castillo) Normal Stool Size Moderate Stool Color Brown Stool Consistency Normal for Patient Formed General appearance: cooperative, morbidly obese and no acute distress Exam: AVSS. No changes DELIA. Local wound care for Dermatitis of LLE is ongoing. CHF, Anemia and other medical treatments are ongoing,. A/P Narrative A/P Narrative: Assessment: Satisfactory progress from wound care point of view, Plan: Continue current wound management and encourage ambulation. Time Spent With Patient Time: Total time spent is greater than 50% in coordination of care (as documented) at patient's floor/unit and/or counseling patient: Total time spent with greater than 50% in coordination of care (as documented) at patient's floor/unit and/or counseling patient:: 15 - 24 minutes
[2021-04-03] MEDS: FUROSEMIDE 40 MG TABLET PO SCH (15:43)
[2021-04-03] MEDS: SENNOSIDES 1 TABLET PO SCH (21:08)
[2021-04-04] MEDS: 0.9 % SODIUM CHLORIDE 10 ML SYRINGE IV SCH ×3 (04:37→21:30)
[2021-04-04 06:58] LABS: Basophils # (Auto) 0.06 K/mcL (0.00-0.20); Basophils % (Auto) 0.5 % (0.0-2.0); Eosinophils # (Auto) 0.24 K/mcL (0.00-0.70); Eosinophils % (Auto) 2.1 % (0.0-7.0); Hematocrit 39.1 % (41.0-55.0); Hemoglobin 10.8 g/dL (13.5-16.5); Lymphocytes # (Auto) 4.22 K/mcL (1.50-4.80); Mean Corpuscular HGB Conc 27.6 g/dL (31.0-36.0); Mean Platelet Volume 10.2 fL (7.4-10.4); Monocytes # (Auto) 0.89 K/mcL (0.10-0.90); Monocytes % (Auto) 7.8 % (1.0-12.0); Neutrophils % (Auto) 52.6 % (38.0-78.0); Platelet Count 295 K/mcL (140-440); RBC 5.21 M/mcL (4.50-5.90); Red Cell Distribution Width 18.1 % (11.5-14.5); WBC 11.4 K/mcL (4.5-11.0)
[2021-04-04 07:21] LABS: ALT/SGPT < 5 U/L (<40); AST/SGOT 7 U/L (<40); Albumin 2.7 gm/dL (3.2-5.2); Albumin/Globulin Ratio 1.4 (1.0-2.3); Alkaline Phosphatase 77 U/L (39-117); Bilirubin,Total 0.4 mg/dL (0.1-1.0); Blood Urea Nitrogen 9 mg/dL (6-20); Calcium 8.4 mg/dL (8.6-10.4); Carbon Dioxide 33 mmol/L (22-30); Chloride 99 mmol/L (96-108); Globulin 1.9 gm/dL (2.2-3.7); Glomerular Filtration Rate 111; Glucose 97 mg/dL (70-105)
[2021-04-04] MEDS: ASPIRIN 81 MG TAB.CHEW PO SCH (08:00)
[2021-04-04] MEDS: CALCIUM CARBONATE 500 MG TAB.CHEW PO SCH ×2 (08:00→21:20)
[2021-04-04] MEDS: ENOXAPARIN 40 MG/0.4 ML SYRINGE SQ SCH (08:00)
[2021-04-04] MEDS: LISINOPRIL 2.5 MG TABLET PO SCH (08:00)
[2021-04-04] MEDS: FUROSEMIDE 40 MG TABLET PO SCH ×2 (08:00→16:39)
[2021-04-04] MEDS: DOCUSATE SODIUM 100 MG CAPSULE PO SCH ×2 (08:00→21:21)
[2021-04-04] MEDS: VANCOMYCIN 1,500 MG in 0.9 % SODIUM CHLORIDE 500 ML IV SCH ×2 (08:46→21:15)
--- NOTE | 2021-04-04 11:26 | Internal Med Progress Note ---
SUBJECTIVE Subjective Patient information: Note initiated : 04/04/21 at 11:21 am Service Date, if different from initiated Date: [] Patient: Jb Ghotra 55 y/o M admitted on 04/01/21 for CHF, Wounds. Chief Complaint: [CHF exacerbation, left leg cellulitis] 04/02/21: Patient is c/o mild to moderate burning pain of his left lower leg. c/o SOB. Still on 4L/min oxygen. Denies chest pain. Denies fever or chills or sweating. Wound and blood cultures no growth to date. 04/03/21: Afebrile overnight. Wound culture growing gram negative bacillus. On 3L/min oxygen. Denies leg pain. Denies fever or chills. 04/04/21: Afebrile overnight. On 2L/min oxygen. Wound culture growing gram negative bacillus and strep dysgalactiae. C/o mild left leg pain. Denies fever or chills or sweating. Constitutional Vitals: Vital Signs Temp Pulse Resp BP Pulse Ox 36.5 C 79 20 153/85 93 04/04/21 07:59 04/04/21 07:59 04/04/21 08:00 04/04/21 07:59 04/04/21 07:59 Period Temp Pulse Resp BP Sys/Moya Pulse Ox Last 24 Hr 36.5 C-37.1 C 76-86 16-20 111-153/65-85 91-96 Intake and Output 04/03/21 04/04/21 04/04/21 21:59 05:59 13:59 Intake Total 800 900 Output Total 350 750 Balance 450 150 Intake & Output: Intake & Output 04/03/21 04/04/21 04/04/21 21:59 05:59 13:59 Intake Total 800 900 Output Total 350 750 Balance 450 150 Intake: IV 500 Vancomycin 1,500 mg In Sodium 500 Chloride 0.9% 500 ml @ 333.3 mls/hr IV Q12H [facility] Rx#: [id number] Oral 800 400 Output: Urine Catheter Amount 350 750 Other: Meal egg salad dip Breakfast Percent of Meal Consumed 100% 100% Feeding Ability Independent Independent Urine Appearance Clear Clear Clear Uretheral (Castillo) Clear Clear Urine Color Dark Yellow Dark Yellow Straw Uretheral (Castillo) Dark Yellow Straw Urine Odor Normal Normal Uretheral (Castillo) Normal Normal Stool Size Large Stool Color Brown # Bowel Movements 1 General appearance: cooperative and no acute distress Head Head exam: Present atraumatic and normocephalic Eye Eye exam: Present EOMI and PERRL ENT ENT exam: Present mucous membranes moist, normal exam and normal external ear exam Additional comments: Nasal cannula in place Neck Neck exam: Present normal inspection; Absent lymphadenopathy, tenderness and thyromegaly Respiratory Respiratory exam: Absent accessory muscle use, respiratory distress and wheezes Additional comments: Decreased breath sound in all lung loo given body habitus Cardiovascular Cardiovascular exam: Present normal rate and rhythm; Absent JVD GI/Abdominal GI/Abdominal exam: Present normal bowel sounds and soft; Absent organomegaly and tenderness Additional comments: Obese abdomen Rectal Rectal exam: Present deferred Additional comments: Castillo catheter in place. Extremities Exam Extremities exam: Present full ROM, normal capillary refill and normal inspection; Absent tenderness Neurological Exam Neurological exam: Present alert, CN II-XII intact and oriented X3; Absent motor sensory deficit Psychiatric Psychiatric exam: Present normal affect and normal mood; Absent anxious and depressed Skin Skin exam: Absent dry and intact Additional comments: Left lower leg wrapped in surgical dressing. +foul smelling Left thigh indurated, erythematic, warm to touch Abdominal skin fold intertrigo region covered with zinc oxide dry poweder OBJ DATA Labs CBC & Chem 7: 04/04/21 05:38 04/04/21 05:38 Labs: Abnormal Lab Results 04/04/21 04/04/21 04/03/21 05:38 05:38 05:12 WBC 11.4 H Hgb 10.8 L Hct 39.1 L MCV 75.0 L MCH 20.7 L MCHC 27.6 L RDW 18.1 H Absolute Neutrophils Carbon Dioxide 33 H Anion Gap 6.0 L Creatinine 0.6 L 0.6 L Calcium 8.4 L 8.1 L Iron 15 L Transferrin % Sat 6 L Total Protein 4.6 L 4.6 L Albumin 2.7 L 2.6 L Globulin 1.9 L 2.0 L Procalcitonin 04/03/21 04/02/21 04/02/21 05:12 05:19 05:18 WBC 13.3 H Hgb 10.7 L Hct 39.3 L MCV 75.6 L MCH 20.6 L MCHC 27.2 L RDW 18.4 H Absolute Neutrophils 9.16 H Carbon Dioxide Anion Gap Creatinine Calcium 8.1 L Iron Transferrin % Sat Total Protein 4.7 L Albumin 2.6 L Globulin 2.1 L Procalcitonin 0.20 H 04/02/21 05:18 WBC 14.3 H Hgb 10.8 L Hct 39.3 L MCV 76.3 L MCH 21.0 L MCHC 27.5 L RDW 18.6 H Absolute Neutrophils 10.44 H Carbon Dioxide Anion Gap Creatinine Calcium Iron Transferrin % Sat Total Protein Albumin Globulin Procalcitonin Meds: Medications Acetaminophen (Acetaminophen 325 Mg Tablet) 650 mg PO Q6HP PRN; Protocol PRN Reason: Per Pain Protocol/Fever > 101 Aspirin (Aspirin 81 Mg Tab.Chew) 81 mg PO DAILY [facility] Last Admin: 04/04/21 08:00 Dose: 81 mg Documented by: Bisacodyl (Bisacodyl 10 Mg Supp.Rect) 10 mg ID Q2-3DAYS PRN PRN Reason: Constipation Calcium Carbonate/Glycine (Calcium Carbonate 500 Mg Tab.Chew) 500 mg PO BID [facility] Last Admin: 04/04/21 08:00 Dose: 500 mg Documented by: Docusate Sodium (Docusate Sodium 100 Mg Capsule) 100 mg PO BID [facility] Last Admin: 04/04/21 08:00 Dose: 100 mg Documented by: Enoxaparin Sodium (Enoxaparin 40 Mg/0.4 Ml Syringe) 40 mg SQ DAILY [facility] Last Admin: 04/04/21 08:00 Dose: 40 mg Documented by: Furosemide (Furosemide 40 Mg Tablet) 40 mg PO BIDD [facility] Last Admin: 04/04/21 08:00 Dose: 40 mg Documented by: Hydralazine HCl (Hydralazine 20 Mg/Ml Vial) 10 mg IV Q4-6HP PRN PRN Reason: Hypertension Vancomycin HCl 1,500 mg/ (Sodium Chloride) 500 mls @ 333.3 mls/hr IV Q12H [facility] Last Admin: 04/04/21 08:46 Dose: 333 mls/hr Documented by: Ibuprofen (Ibuprofen 200 Mg Tablet) 200 mg PO Q6HP PRN PRN Reason: Pain Lisinopril (Lisinopril 2.5 Mg Tablet) 2.5 mg PO DAILY [facility] Last Admin: 04/04/21 08:00 Dose: 2.5 mg Documented by: Morphine Sulfate (Morphine 4 Mg/Ml Vial) 2 mg IV Q4HP PRN; Protocol PRN Reason: Per Pain Protocol Ondansetron HCl (Ondansetron 4 Mg/2 Ml Vial) 4 mg IV Q6HP PRN PRN Reason: Nausea And Vomiting Oxycodone/Acetaminophen (Oxycodone/Apap 5/325mg Tablet) 1 tab PO Q4HP PRN; Protocol PRN Reason: Per Pain Protocol Promethazine HCl (Promethazine 25 Mg/Ml Vial) 12.5 mg IV Q6HP PRN PRN Reason: Nausea And Vomiting Senna (Sennosides 1 Tablet) 2 tab PO HS [facility] Last Admin: 04/03/21 21:08 Dose: Not Given Documented by: Sodium Chloride (0.9 % Sodium Chloride 10 Ml Syringe) 10 ml IV Q8 [facility] Last Admin: 04/04/21 04:37 Dose: 10 ml Documented by: Vancomycin HCl (Vancomycin Per Pharmacy) 1 order IV UD [facility] Zolpidem Tartrate (Zolpidem 5 Mg Tablet) 5 mg PO HSP PRN PRN Reason: Insomnia A/P Assessment and plan (1) Morbid obesity: Status: Acute (2) Acute on chronic diastolic (congestive) heart failure: Status: Acute (3) Cellulitis of both lower extremities: Status: Acute (4) Left leg cellulitis: Status: Acute (5) Atrial fibrillation: Status: Acute (6) Hypochromic microcytic anemia: Status: Acute (7) Hypocalcemia: Status: Acute Narrative A/P Narrative: Assessment and Plans: 1. Acute on chronic CHF exacerbation: Stays in inpatient telemetry Intake and output Daily weigh 2L/d fluid restriction Supplemental oxygen via nasal cannula titrate to achieve oxygen saturation >=92% 2D echocardiogram: Good systolic function with LVEF 55-60%, signs of diastolic dysfunction and pulmonary HTN Lasix 40mg PO BID Lisinopril 2.5mg PO daily Add beta madhavi when patient is out of exacerbation phrase Physical and occupational therapies 2. Left lower extremity cellulitis: Blood culture X2 no growth to date Wound culture growing gram negative bacillus and strep dysgalactiae Serial lactic acid Procalcitonin level Vancomycin IV Percocet PRN moderate pain Morphine IV PRN severe pain Tylenol PRN fever cbc w/ auto diff in the morning to trend WBC level Consult wound care team Dr. Molina, recs. appreciated. No surgical debridement. Continue wound care, mist therapy, and antibiotics Consult ID olivia Coburn. appreciated 3. Morbid obesity: [employer] patient on the importance of life style modifications such as healthy diet and regular exercise in order to lose weight 4. Atrial fibrillation: [id number] score of 1 Add Aspirin, no anticoagulation at this point Add beta madhavi when it is over the CHF exacerbation phrase is over 5. Microcytic hypochromic anemia: cbc w/ auto diff in the morning to trend H/H; transfuse pRBC if hemoglobin <7.0, active bleeding, or symptomatic Iron panel Vitamin B12 level Folate level 6. Hypocalcemia: Calcium carbonate oral replacement GI ppx: not currently indicated DVT ppx: Lovenox Code status: Full Prognosis: stable Disposition: inpatient med surg tele; PT OT Time Spent With Patient Time: Total time spent is greater than 50% in coordination of care (as documented) at patient's floor/unit and/or counseling patient: Total time spent with greater than 50% in coordination of care (as documented) at patient's floor/unit and/or counseling patient:: 15 - 24 minutes
--- NOTE | 2021-04-04 12:50 | General Surgery Progress Note ---
SUBJECTIVE Subjective Patient information: Note initiated : 04/04/21 at 12:46 pm Service Date, if different from initiated Date: [] Patient: Jb Ghotra 55 y/o M admitted on 04/01/21 for CHF, Wounds. Chief Complaint: [] Additional PMFSH (Level 3 Only): Looks good and feels well. Ambulating better. Resolving inflammation Right thigh and leg. Constitutional Vitals: Vital Signs Temp Pulse Resp BP Pulse Ox 97.6 F 79 16 158/93 93 04/04/21 12:00 04/04/21 12:00 04/04/21 12:00 04/04/21 12:00 04/04/21 12:00 Period Temp Pulse Resp BP Sys/Moya Pulse Ox Last 24 Hr 97.6 F-98.8 F 76-86 16-20 116-158/72-93 91-95 Intake and Output 04/03/21 04/04/21 04/04/21 21:59 05:59 13:59 Intake Total 800 900 500 Output Total 350 750 Balance 450 150 500 Intake & Output: Intake & Output 04/03/21 04/04/21 04/04/21 21:59 05:59 13:59 Intake Total 800 900 500 Output Total 350 750 Balance 450 150 500 Intake: IV 500 500 Vancomycin 1,500 mg In Sodium 500 500 Chloride 0.9% 500 ml @ 333.3 mls/hr IV Q12H [facility] Rx#: [id number] Oral 800 400 Output: Urine Catheter Amount 350 750 Other: Meal egg salad dip Breakfast Percent of Meal Consumed 100% 100% Feeding Ability Independent Independent Urine Appearance Clear Clear Clear Uretheral (Castillo) Clear Clear Urine Color Dark Yellow Dark Yellow Straw Uretheral (Castillo) Dark Yellow Straw Urine Odor Normal Normal Uretheral (Castillo) Normal Normal Stool Size Large Stool Color Brown # Bowel Movements 1 General appearance: cooperative, morbidly obese and no acute distress Exam: AVSS. No changes DELIA L/E Resolving CSSSI Left LE Reviewed labs and c/s results. A/P Narrative A/P Narrative: Assessment: Satisfactory progress. Examined LLE. Spoke with Oanh CHAVIS. Plan: Continue present treatment over w/e. Reassess on Tuesday04/06/2021 Time Spent With Patient Time: Total time spent is greater than 50% in coordination of care (as documented) at patient's floor/unit and/or counseling patient: Total time spent with greater than 50% in coordination of care (as documented) at patient's floor/unit and/or counseling patient:: 15 - 24 minutes
[2021-04-04] MEDS: SENNOSIDES 1 TABLET PO SCH (21:21)
[2021-04-05] MEDS: 0.9 % SODIUM CHLORIDE 10 ML SYRINGE IV SCH ×3 (06:10→21:15)
[2021-04-05 07:18] LABS: Basophils # (Auto) 0.08 K/mcL (0.00-0.20); Basophils % (Auto) 0.7 % (0.0-2.0); Eosinophils # (Auto) 0.31 K/mcL (0.00-0.70); Eosinophils % (Auto) 2.8 % (0.0-7.0); Hematocrit 40.3 % (41.0-55.0); Hemoglobin 11.1 g/dL (13.5-16.5); Lymphocytes # (Auto) 4.63 K/mcL (1.50-4.80); Lymphocytes % (Auto) 41.9 % (15.0-49.0); Mean Cell Volume 75.6 fL (80.0-100.0); Mean Corpuscular HGB Conc 27.5 g/dL (31.0-36.0); Mean Platelet Volume 10.6 fL (7.4-10.4); Monocytes # (Auto) 0.84 K/mcL (0.10-0.90); Monocytes % (Auto) 7.6 % (1.0-12.0); Platelet Count 333 K/mcL (140-440); RBC 5.33 M/mcL (4.50-5.90); Red Cell Distribution Width 18.3 % (11.5-14.5); WBC 11.1 K/mcL (4.5-11.0)
[2021-04-05 07:44] LABS: ALT/SGPT 6 U/L (<40); AST/SGOT 9 U/L (<40); Albumin 2.7 gm/dL (3.2-5.2); Albumin/Globulin Ratio 1.4 (1.0-2.3); Alkaline Phosphatase 76 U/L (39-117); Bilirubin,Total 0.5 mg/dL (0.1-1.0); Blood Urea Nitrogen 7 mg/dL (6-20); Calcium 8.2 mg/dL (8.6-10.4); Carbon Dioxide 32 mmol/L (22-30); Chloride 100 mmol/L (96-108); Glomerular Filtration Rate 111; Glucose 104 mg/dL (70-105)
[2021-04-05] MEDS: FUROSEMIDE 40 MG TABLET PO SCH ×2 (08:47→15:22)
[2021-04-05] MEDS: ASPIRIN 81 MG TAB.CHEW PO SCH (08:47)
[2021-04-05] MEDS: LISINOPRIL 2.5 MG TABLET PO SCH (08:47)
[2021-04-05] MEDS: CALCIUM CARBONATE 500 MG TAB.CHEW PO SCH ×2 (08:47→21:24)
[2021-04-05] MEDS: VANCOMYCIN 1,500 MG in 0.9 % SODIUM CHLORIDE 500 ML IV SCH ×2 (08:48→21:20)
[2021-04-05] MEDS: ENOXAPARIN 40 MG/0.4 ML SYRINGE SQ SCH (08:48)
[2021-04-05] MEDS: DOCUSATE SODIUM 100 MG CAPSULE PO SCH ×2 (08:53→21:24)
--- NOTE | 2021-04-05 11:31 | Internal Med Progress Note ---
SUBJECTIVE Subjective Patient information: Note initiated : 04/05/21 at 11:29 am Service Date, if different from initiated Date: [] Patient: Jb Ghotra 55 y/o M admitted on 04/01/21 for CHF, Wounds. Chief Complaint: [Left lower leg cellulitis] 04/02/21: Patient is c/o mild to moderate burning pain of his left lower leg. c/o SOB. Still on 4L/min oxygen. Denies chest pain. Denies fever or chills or sweating. Wound and blood cultures no growth to date. 04/03/21: Afebrile overnight. Wound culture growing gram negative bacillus. On 3L/min oxygen. Denies leg pain. Denies fever or chills. 04/04/21: Afebrile overnight. On 2L/min oxygen. Wound culture growing gram negative bacillus and strep dysgalactiae. C/o mild left leg pain. Denies fever or chills or sweating. 04/04/21: Afebrile overnight. On 1L/min oxygen. Wound culture growing gram negative bacillus and strep dysgalactiae. C/o mild left leg pain. Denies fever or chills or sweating. Constitutional Vitals: Vital Signs Temp Pulse Resp BP Pulse Ox 36.2 C 78 20 158/93 93 04/05/21 06:53 04/05/21 04:00 04/05/21 06:53 04/05/21 06:53 04/05/21 06:53 Period Temp Pulse Resp BP Sys/Moya Pulse Ox Last 24 Hr 36.2 C-36.8 C 73-79 16-22 122-158/65-93 91-95 Intake and Output 04/04/21 04/05/21 04/05/21 21:59 05:59 13:59 Intake Total 1200 800 500 Output Total 850 1250 Balance 350 -450 500 Intake & Output: Intake & Output 04/04/21 04/05/21 04/05/21 21:59 05:59 13:59 Intake Total 1200 800 500 Output Total 850 1250 Balance 350 -450 500 Intake: IV 500 500 Vancomycin 1,500 mg In Sodium 500 500 Chloride 0.9% 500 ml @ 333.3 mls/hr IV Q12H [facility] Rx#: [id number] Oral 1200 300 Output: Urine Catheter Amount 850 1250 Other: Urine Appearance Clear Clear Clear Uretheral (Castillo) Clear Clear Urine Color Light Joyce Light Joyce Light Joyce Uretheral (Castillo) Light Joyce Light Joyce Urine Odor Normal Normal Normal Uretheral (Castillo) Normal Normal Stool Size Large Stool Color Brown Stool Consistency Soft Formed # Bowel Movements 1 General appearance: cooperative and no acute distress Head Head exam: Present atraumatic and normocephalic Eye Eye exam: Present EOMI and PERRL ENT ENT exam: Present mucous membranes moist, normal exam and normal external ear exam Additional comments: Nasal cannula in place Neck Neck exam: Present normal inspection; Absent lymphadenopathy, tenderness and thyromegaly Respiratory Respiratory exam: Absent accessory muscle use, respiratory distress and wheezes Cardiovascular Cardiovascular exam: Present normal rate and rhythm; Absent JVD GI/Abdominal GI/Abdominal exam: Present normal bowel sounds and soft; Absent organomegaly and tenderness Additional comments: Obese abdomen Abdominal skin fold intertrigo region covered with zinc oxide dry poweder Rectal Rectal exam: Present deferred Extremities Exam Extremities exam: Present full ROM, normal capillary refill and normal inspection; Absent tenderness Neurological Exam Neurological exam: Present alert, CN II-XII intact and oriented X3; Absent motor sensory deficit Psychiatric Psychiatric exam: Present normal affect and normal mood; Absent anxious and depressed Skin Skin exam: Absent dry and intact Additional comments: Left lower leg wrapped in surgical dressing. +foul smelling Left thigh indurated, erythematic, warm to touch Abdominal skin fold intertrigo region covered with zinc oxide dry powder OBJ DATA Labs CBC & Chem 7: 04/05/21 05:52 04/05/21 05:52 Labs: Abnormal Lab Results 04/05/21 04/05/21 04/04/21 05:52 05:52 05:38 WBC 11.1 H Hgb 11.1 L Hct 40.3 L MCV 75.6 L MCH 20.8 L MCHC 27.5 L RDW 18.3 H MPV 10.6 H Absolute Neutrophils Carbon Dioxide 32 H 33 H Anion Gap 7.0 L 6.0 L Creatinine 0.6 L 0.6 L Calcium 8.2 L 8.4 L Iron Transferrin % Sat Total Protein 4.7 L 4.6 L Albumin 2.7 L 2.7 L Globulin 2.0 L 1.9 L Procalcitonin 04/04/21 04/03/21 04/03/21 05:38 05:12 05:12 WBC 11.4 H 13.3 H Hgb 10.8 L 10.7 L Hct 39.1 L 39.3 L MCV 75.0 L 75.6 L MCH 20.7 L 20.6 L MCHC 27.6 L 27.2 L RDW 18.1 H 18.4 H MPV Absolute Neutrophils 9.16 H Carbon Dioxide Anion Gap Creatinine 0.6 L Calcium 8.1 L Iron 15 L Transferrin % Sat 6 L Total Protein 4.6 L Albumin 2.6 L Globulin 2.0 L Procalcitonin 04/02/21 05:19 WBC Hgb Hct MCV MCH MCHC RDW MPV Absolute Neutrophils Carbon Dioxide Anion Gap Creatinine Calcium Iron Transferrin % Sat Total Protein Albumin Globulin Procalcitonin 0.20 H Meds: Medications Acetaminophen (Acetaminophen 325 Mg Tablet) 650 mg PO Q6HP PRN; Protocol PRN Reason: Per Pain Protocol/Fever > 101 Aspirin (Aspirin 81 Mg Tab.Chew) 81 mg PO DAILY [facility] Last Admin: 04/05/21 08:47 Dose: 81 mg Documented by: Bisacodyl (Bisacodyl 10 Mg Supp.Rect) 10 mg FL Q2-3DAYS PRN PRN Reason: Constipation Calcium Carbonate/Glycine (Calcium Carbonate 500 Mg Tab.Chew) 500 mg PO BID [facility] Last Admin: 04/05/21 08:47 Dose: 500 mg Documented by: Docusate Sodium (Docusate Sodium 100 Mg Capsule) 100 mg PO BID [facility] Last Admin: 04/05/21 08:53 Dose: Not Given Documented by: Enoxaparin Sodium (Enoxaparin 40 Mg/0.4 Ml Syringe) 40 mg SQ DAILY [facility] Last Admin: 04/05/21 08:48 Dose: 40 mg Documented by: Furosemide (Furosemide 40 Mg Tablet) 40 mg PO BIDD [facility] Last Admin: 04/05/21 08:47 Dose: 40 mg Documented by: Hydralazine HCl (Hydralazine 20 Mg/Ml Vial) 10 mg IV Q4-6HP PRN PRN Reason: Hypertension Vancomycin HCl 1,500 mg/ (Sodium Chloride) 500 mls @ 333.3 mls/hr IV Q12H [facility] Last Infusion: 04/05/21 10:30 Dose: Infused Documented by: Ibuprofen (Ibuprofen 200 Mg Tablet) 200 mg PO Q6HP PRN PRN Reason: Pain Lisinopril (Lisinopril 2.5 Mg Tablet) 2.5 mg PO DAILY [facility] Last Admin: 04/05/21 08:47 Dose: 2.5 mg Documented by: Morphine Sulfate (Morphine 4 Mg/Ml Vial) 2 mg IV Q4HP PRN; Protocol PRN Reason: Per Pain Protocol Ondansetron HCl (Ondansetron 4 Mg/2 Ml Vial) 4 mg IV Q6HP PRN PRN Reason: Nausea And Vomiting Oxycodone/Acetaminophen (Oxycodone/Apap 5/325mg Tablet) 1 tab PO Q4HP PRN; Protocol PRN Reason: Per Pain Protocol Promethazine HCl (Promethazine 25 Mg/Ml Vial) 12.5 mg IV Q6HP PRN PRN Reason: Nausea And Vomiting Senna (Sennosides 1 Tablet) 2 tab PO HS [facility] Last Admin: 04/04/21 21:21 Dose: Not Given Documented by: Sodium Chloride (0.9 % Sodium Chloride 10 Ml Syringe) 10 ml IV Q8 [facility] Last Admin: 04/05/21 06:10 Dose: Not Given Documented by: Vancomycin HCl (Vancomycin Per Pharmacy) 1 order IV UD [facility] Zolpidem Tartrate (Zolpidem 5 Mg Tablet) 5 mg PO HSP PRN PRN Reason: Insomnia A/P Assessment and plan (1) Morbid obesity: Status: Acute (2) Acute on chronic diastolic (congestive) heart failure: Status: Acute (3) Cellulitis of both lower extremities: Status: Acute (4) Left leg cellulitis: Status: Acute (5) Atrial fibrillation: Status: Acute (6) Hypochromic microcytic anemia: Status: Acute (7) Hypocalcemia: Status: Acute Narrative A/P Narrative: Assessment and Plans: 1. Acute on chronic CHF exacerbation: Stays in inpatient telemetry Intake and output Daily weigh 2L/d fluid restriction Supplemental oxygen via nasal cannula titrate to achieve oxygen saturation >=92% 2D echocardiogram: Good systolic function with LVEF 55-60%, signs of diastolic dysfunction and pulmonary HTN Lasix 40mg PO BID Lisinopril 2.5mg PO daily Add beta madhavi when patient is out of exacerbation phrase Physical and occupational therapies 2. Left lower extremity cellulitis: Blood culture X2 no growth to date Wound culture growing gram negative bacillus and strep dysgalactiae Serial lactic acid Procalcitonin level Vancomycin IV Percocet PRN moderate pain Morphine IV PRN severe pain Tylenol PRN fever cbc w/ auto diff in the morning to trend WBC level Consult wound care team Dr. Molina, recs. appreciated. No surgical debridement. Continue wound care, mist therapy, and antibiotics Consult ID Dr. Luna, recs. appreciated 3. Morbid obesity: [employer] patient on the importance of life style modifications such as healthy diet and regular exercise in order to lose weight 4. Atrial fibrillation: [id number] score of 1 Add Aspirin, no anticoagulation at this point Add beta madhavi when it is over the CHF exacerbation phrase is over 5. Microcytic hypochromic anemia: cbc w/ auto diff in the morning to trend H/H; transfuse pRBC if hemoglobin <7.0, active bleeding, or symptomatic Iron panel Vitamin B12 level Folate level 6. Hypocalcemia: Calcium carbonate oral replacement GI ppx: not currently indicated DVT ppx: Lovenox Code status: Full Prognosis: stable Disposition: inpatient med surg tele; PT OT Time Spent With Patient Time: Total time spent is greater than 50% in coordination of care (as documented) at patient's floor/unit and/or counseling patient: Total time spent with greater than 50% in coordination of care (as documented) at patient's floor/unit and/or counseling patient:: 15 - 24 minutes
[2021-04-05] MEDS ORDERED: hydrALAZINE 20 MG/ML VIAL IV PRN (15:50)
[2021-04-05] MEDS: CARVEDILOL 12.5 MG TABLET PO SCH (16:10)
[2021-04-05] MEDS: SENNOSIDES 1 TABLET PO SCH (21:24)
[2021-04-06] MEDS: 0.9 % SODIUM CHLORIDE 10 ML SYRINGE IV SCH ×3 (05:07→22:15)
--- NOTE | 2021-04-06 06:36 | Infectious Disease Consult ---
HPI Data of Consult Consult date: 04/06/21 Primary Care Provider: [facility] Medicine Consult Narrative Patient Information: Note initiated : 04/06/21 at 6:20 am Service Date, if different from initiated Date: [04/06/21] Patient: Jb Ghotra 55 y/o M admitted on 04/01/21 for CHF, Wounds. Chief Complaint: [left leg weeping] Jb is a 55-year-old morbidly obese man with CHF and chronic lower extremity lymphedema. He first presented to [facility] March 31 and was transferred to [facility] for wound care consult April 01. He has had 1 previous episode of infection in the left thigh with abscess requiring I&D in 2013. He had 3 to 4 weeks of worsening left lower extremity wound. No fevers or chills at home. He will intermittently wear compressive stockings but acknowledges that he leave them on for too long and they become wet and soiled. Over the last 3 weeks he had increased weeping of the left leg. He had redness develop up to the left thigh. He has open ulceration over the left lateral anterior caldwell left medial knee and left anterior ankle. He initially received Vanco and cefepime with continuation of IV vancomycin. Proteus and Streptococcus dysgalactaie grew from superficial culture. He is receiving daily mist therapy. He has noticed improvement in left leg erythema and edema. No pain in the left leg. Dr. Maguire asked for consultation. Dr. Fernandez is also involved from wound care. cc:: CC: Ayaz Maguire MD Review of Systems Review of systems: General: No fevers or chills. HEENT: No headache or sore throat. He is currently on 1 L by nasal cannula. He is not usually on nasal cannula O2. On admit he required 4 L. No neck complaints. Pulmonary: No cough but he did complain of shortness of breath on admit. GI: No abdominal pain or diarrhea. positive Castillo catheter. Cardiac: No chest pain. Extremities: Left leg as above. Skin: No complaints of rash. He has a left peripheral line in place. 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 [facility] Home Medications and Allergies Home Medications Medication Instructions Recorded Confirmed Type furosemide 40 - 60 mg PO DAILY MDD 60 04/01/21 04/01/21 History ibuprofen [Advil] 200 mg PO Q6H PRN MDD 800 04/01/21 04/01/21 History Allergies Allergy/AdvReac Type Severity Reaction Status Date / Time No Known Allergies Allergy Verified 04/01/21 16:19 Physical Examination Vital Signs Vital signs: Temp Pulse Resp BP Pulse Ox 98.0 F 73 20 146/78 92 04/06/21 04:00 04/06/21 04:00 04/06/21 04:00 04/06/21 04:00 04/06/21 04:00 Additional Exam Additional exam: General: Laying comfortably in bed. HEENT: EOMI PERRL sclera anicteric. Neck is full. Lungs are clear bilaterally. Heart: Regular rate and rhythm without murmur. Abdomen soft nontender obese. : Positive Castillo catheter. Extremities: 4+ edema in left leg 3+ edema right leg. Faint erythema up to the thigh. Left medial knee edema obesity crease with ulceration. Left lateral caldwell with full-thickness skin loss irregularly bordered moderate size. Left anterior ankle edema obesity crease also with full-thickness skin loss ulceration. No exposed tendon. Significantly crusted hypertrophic exudate over left lower extremity and between toes. Positive onychomycosis. Mild serous drainage on dressing that was removed today. Dressing changed. No knee effusions. He is able to move left foot at the ankle level. No toe pain. Left toe enlarged but nontender. Results Laboratory Findings CBC and BMP: 04/05/21 05:52 04/05/21 05:52 Abnormal lab findings: Abnormal Labs 04/02/21 04/02/21 04/02/21 05:18 05:18 05:19 WBC 14.3 H Hgb 10.8 L Hct 39.3 L MCV 76.3 L MCH 21.0 L MCHC 27.5 L RDW 18.6 H MPV Absolute Neutrophils 10.44 H Carbon Dioxide Anion Gap Creatinine Calcium 8.1 L Iron Transferrin % Sat Total Protein 4.7 L Albumin 2.6 L Globulin 2.1 L Procalcitonin 0.20 H 04/03/21 04/03/21 04/04/21 05:12 05:12 05:38 WBC 13.3 H 11.4 H Hgb 10.7 L 10.8 L Hct 39.3 L 39.1 L MCV 75.6 L 75.0 L MCH 20.6 L 20.7 L MCHC 27.2 L 27.6 L RDW 18.4 H 18.1 H MPV Absolute Neutrophils 9.16 H Carbon Dioxide Anion Gap Creatinine 0.6 L Calcium 8.1 L Iron 15 L Transferrin % Sat 6 L Total Protein 4.6 L Albumin 2.6 L Globulin 2.0 L Procalcitonin 04/04/21 04/05/21 04/05/21 05:38 05:52 05:52 WBC 11.1 H Hgb 11.1 L Hct 40.3 L MCV 75.6 L MCH 20.8 L MCHC 27.5 L RDW 18.3 H MPV 10.6 H Absolute Neutrophils Carbon Dioxide 33 H 32 H Anion Gap 6.0 L 7.0 L Creatinine 0.6 L 0.6 L Calcium 8.4 L 8.2 L Iron Transferrin % Sat Total Protein 4.6 L 4.7 L Albumin 2.7 L 2.7 L Globulin 1.9 L 2.0 L Procalcitonin Microbiology: Microbiology 04/01/21 16:37 Ankle - Left Gram Stain - Preliminary 04/01/21 16:37 Ankle - Left Wound Culture - Preliminary Proteus mirabilis Streptococcus dysgalactiae Weight 223 kg. On April 02 white count 14.3 creatinine 0.8. Cultures from April 01 as above. Proteus susceptibilities pending. On April 03 Vanco trough 12.4. April 02 sed rate 3 echocardiogram 55 to 60% EF. April 05 creatinine 0.6 white count 11.1 A/P Assessment and plan (1) Left leg cellulitis: Status: Acute Comment: Jb is a 55-year-old morbidly obese man who was admitted for CHF and left leg cellulitis. He has been on antibiotics vancomycin for the past 7 days. He has noticed improvement in left leg erythema. Cultures have grown Streptococcus dysgalactaie and proteus. Proteus susceptibilities pending. Vancomycin can be discontinued. Resume cefepime at 2 g IV every 8 hours. I am expecting 3 more days of IV therapy before transition to oral Augmentin. The strep is likely the predominant pathogen. I have cautioned him that he is at risk for relapse and recurrent episodes of cellulitis secondary to body habitus and chronic lymphedema with open ulcerations. (2) Morbid obesity: Status: Acute Comment: Comorbid risk factor. (3) Lymphedema: Status: Acute Comment: Diuretic management per hospitalist (4) Acute on chronic diastolic (congestive) heart failure: Status: Acute Comment: Per hospitalist. According to nursing staff, patient had a bradycardic episode last night. (5) Skin ulcer: Status: Acute Comment: Dr. Don involved with wound care management. I am expecting that he will be transitioned from IV cefepime to oral Augmentin in 3 days. Dose of Augmentin XR 1 g twice daily for 30 days. 2 refills. I would be happy to see him in follow-up in clinic in 2 weeks to provide guidance on duration of oral antibiotic therapy. Time Spent With Patient Time: Total time spent is greater than 50% in coordination of care (as documented) at patient's floor/unit and/or counseling patient:
[2021-04-06 07:47] LABS: Basophils # (Auto) 0.08 K/mcL (0.00-0.20); Basophils % (Auto) 0.8 % (0.0-2.0); Eosinophils # (Auto) 0.27 K/mcL (0.00-0.70); Eosinophils % (Auto) 2.6 % (0.0-7.0); Hematocrit 39.8 % (41.0-55.0); Hemoglobin 10.9 g/dL (13.5-16.5); Lymphocytes # (Auto) 4.96 K/mcL (1.50-4.80); Lymphocytes % (Auto) 48.3 % (15.0-49.0); Mean Cell Volume 75.2 fL (80.0-100.0); Mean Corpuscular HGB Conc 27.4 g/dL (31.0-36.0); Mean Platelet Volume 9.9 fL (7.4-10.4); Monocytes # (Auto) 0.78 K/mcL (0.10-0.90); Monocytes % (Auto) 7.6 % (1.0-12.0); Neutrophils % (Auto) 40.7 % (38.0-78.0); Platelet Count 319 K/mcL (140-440); RBC 5.29 M/mcL (4.50-5.90); Red Cell Distribution Width 18.3 % (11.5-14.5); WBC 10.3 K/mcL (4.5-11.0)
[2021-04-06] MEDS: LISINOPRIL 2.5 MG TABLET PO SCH (08:13)
[2021-04-06] MEDS: FUROSEMIDE 40 MG TABLET PO SCH ×2 (08:13→16:08)
[2021-04-06] MEDS: ASPIRIN 81 MG TAB.CHEW PO SCH (08:13)
[2021-04-06] MEDS: ENOXAPARIN 40 MG/0.4 ML SYRINGE SQ SCH (08:13)
[2021-04-06] MEDS: CALCIUM CARBONATE 500 MG TAB.CHEW PO SCH ×2 (08:13→22:00)
[2021-04-06 08:31] LABS: ALT/SGPT 5 U/L (<40); AST/SGOT 9 U/L (<40); Albumin 2.6 gm/dL (3.2-5.2); Albumin/Globulin Ratio 1.4 (1.0-2.3); Alkaline Phosphatase 76 U/L (39-117); Bilirubin,Total 0.4 mg/dL (0.1-1.0); Blood Urea Nitrogen 6 mg/dL (6-20); Calcium 8.6 mg/dL (8.6-10.4); Carbon Dioxide 30 mmol/L (22-30); Chloride 100 mmol/L (96-108); Globulin 1.9 gm/dL (2.2-3.7); Glomerular Filtration Rate 111; Glucose 82 mg/dL (70-105)
[2021-04-06] MEDS: VANCOMYCIN 1,500 MG in 0.9 % SODIUM CHLORIDE 500 ML IV SCH (09:50)
[2021-04-06] MEDS: CARVEDILOL 12.5 MG TABLET PO SCH ×2 (10:51→16:43)
[2021-04-06] MEDS: DOCUSATE SODIUM 100 MG CAPSULE PO SCH ×2 (10:52→20:33)
[2021-04-06] MEDS ORDERED: GENTAMICIN SULFATE 40 MG, CLINDAMYCIN 300 MG, BACITRACIN 25,000 UNIT in SODIUM CHLORIDE... IRR SCH (11:00)
--- NOTE | 2021-04-06 11:21 | Internal Med Progress Note ---
SUBJECTIVE Subjective Patient information: Note initiated : 04/06/21 at 11:16 am Service Date, if different from initiated Date: [] Patient: Jb Ghotra 55 y/o M admitted on 04/01/21 for CHF, Wounds. Chief Complaint: [Left lower leg cellulitis] 04/02/21: Patient is c/o mild to moderate burning pain of his left lower leg. c/o SOB. Still on 4L/min oxygen. Denies chest pain. Denies fever or chills or sweating. Wound and blood cultures no growth to date. 04/03/21: Afebrile overnight. Wound culture growing gram negative bacillus. On 3L/min oxygen. Denies leg pain. Denies fever or chills. 04/04/21: Afebrile overnight. On 2L/min oxygen. Wound culture growing gram negative bacillus and strep dysgalactiae. C/o mild left leg pain. Denies fever or chills or sweating. 04/05/21: Afebrile overnight. On 1L/min oxygen. Wound culture growing gram negative bacillus and strep dysgalactiae. C/o mild left leg pain. Denies fever or chills or sweating. 04/05/21: Afebrile overnight. On 1L/min oxygen. Wound culture growing Proteus mirabilis and Strep dysgalactiae. Denies left leg pain. Denies fever or chills or sweating. Constitutional Vitals: Vital Signs Temp Pulse Resp BP Pulse Ox 36.6 C 64 18 151/84 90 04/06/21 07:09 04/06/21 07:09 04/06/21 07:09 04/06/21 07:09 04/06/21 07:09 Period Temp Pulse Resp BP Sys/Moya Pulse Ox Last 24 Hr 36.2 C-36.8 C 64-80 18-20 125-170/66-102 90-92 Intake and Output 04/05/21 04/06/21 04/06/21 21:59 05:59 13:59 Intake Total 480 600 480 Output Total 3600 900 Balance -3120 -300 480 Weight 223.196 kg Intake & Output: Intake & Output 04/05/21 04/06/21 04/06/21 21:59 05:59 13:59 Intake Total 480 600 480 Output Total 3600 900 Balance -3120 -300 480 Weight 223.196 kg Intake: IV 500 Vancomycin 1,500 mg In Sodium 500 Chloride 0.9% 500 ml @ 333.3 mls/hr IV Q12H [facility] Rx#: [id number] Oral 480 100 480 Output: Urine Catheter Amount 3600 900 Uretheral (Castillo) 1200 Other: Meal Breakfast Percent of Meal Consumed 100% Urine Appearance Clear Clear Uretheral (Castillo) Clear Urine Color Bright Yellow Bright Yellow Uretheral (Castillo) Bright Yellow Urine Odor Normal Normal Uretheral (Castillo) Normal General appearance: cooperative and no acute distress Head Head exam: Present atraumatic and normocephalic Eye Eye exam: Present EOMI and PERRL ENT ENT exam: Present mucous membranes moist, normal exam and normal external ear exam Neck Neck exam: Present normal inspection; Absent lymphadenopathy, tenderness and thyromegaly Respiratory Respiratory exam: Absent accessory muscle use, respiratory distress and wheezes Cardiovascular Cardiovascular exam: Present normal rate and rhythm; Absent JVD GI/Abdominal GI/Abdominal exam: Present normal bowel sounds and soft; Absent organomegaly and tenderness Additional comments: Obese abdomen Abdominal skin fold intertrigo region covered with zinc oxide dry poweder Rectal Rectal exam: Present deferred Additional comments: Castillo catheter in place Extremities Exam Extremities exam: Present full ROM, normal capillary refill and normal inspect ion; Absent tenderness Neurological Exam Neurological exam: Present alert, CN II-XII intact and oriented X3; Absent motor sensory deficit Psychiatric Psychiatric exam: Present normal affect and normal mood; Absent anxious and depressed Skin Skin exam: Absent dry and intact Additional comments: Left lower leg wrapped in surgical dressing. +foul smelling Left thigh indurated, erythematic, warm to touch Abdominal skin fold intertrigo region covered with zinc oxide dry powder OBJ DATA Labs CBC & Chem 7: 04/06/21 05:10 04/06/21 05:10 Labs: Abnormal Lab Results 04/06/21 04/06/21 04/05/21 05:10 05:10 05:52 WBC Hgb 10.9 L Hct 39.8 L MCV 75.2 L MCH 20.6 L MCHC 27.4 L RDW 18.3 H MPV Lymph # (Auto) 4.96 H Carbon Dioxide 32 H Anion Gap 7.0 L Creatinine 0.6 L 0.6 L Calcium 8.2 L Total Protein 4.5 L 4.7 L Albumin 2.6 L 2.7 L Globulin 1.9 L 2.0 L 04/05/21 04/04/21 04/04/21 05:52 05:38 05:38 WBC 11.1 H 11.4 H Hgb 11.1 L 10.8 L Hct 40.3 L 39.1 L MCV 75.6 L 75.0 L MCH 20.8 L 20.7 L MCHC 27.5 L 27.6 L RDW 18.3 H 18.1 H MPV 10.6 H Lymph # (Auto) Carbon Dioxide 33 H Anion Gap 6.0 L Creatinine 0.6 L Calcium 8.4 L Total Protein 4.6 L Albumin 2.7 L Globulin 1.9 L Meds: Medications Acetaminophen (Acetaminophen 325 Mg Tablet) 650 mg PO Q6HP PRN; Protocol PRN Reason: Per Pain Protocol/Fever > 101 Aspirin (Aspirin 81 Mg Tab.Chew) 81 mg PO DAILY [facility] Last Admin: 04/06/21 08:13 Dose: 81 mg Documented by: Bisacodyl (Bisacodyl 10 Mg Supp.Rect) 10 mg NV Q2-3DAYS PRN PRN Reason: Constipation Calcium Carbonate/Glycine (Calcium Carbonate 500 Mg Tab.Chew) 500 mg PO BID [facility] Last Admin: 04/06/21 08:13 Dose: 500 mg Documented by: Carvedilol ([facility] 12.5 Mg Tablet) [facility] Last Admin: 04/06/21 10:51 Dose: 25 mg Documented by: Cefepime HCl (Cefepime 2 Gm Vial) 2 gm IV Q8H [facility]; Protocol Docusate Sodium (Docusate Sodium 100 Mg Capsule) 100 mg PO BID [facility] Last Admin: 04/06/21 10:52 Dose: Not Given Documented by: Enoxaparin Sodium (Enoxaparin 40 Mg/0.4 Ml Syringe) 40 mg SQ DAILY [facility] Last Admin: 04/06/21 08:13 Dose: 40 mg Documented by: Furosemide (Furosemide 40 Mg Tablet) 40 mg PO BIDD [facility] Last Admin: 04/06/21 08:13 Dose: 40 mg Documented by: Hydralazine HCl (Hydralazine 20 Mg/Ml Vial) 10 mg IV Q4-6HP PRN PRN Reason: Hypertension Hydralazine HCl (Hydralazine 20 Mg/Ml Vial) 10 mg IV Q4-6HP PRN PRN Reason: Hypertension Gentamicin Sulfate 40 mg/Clindamycin Phosphate 300 mg/Sodium Chloride 503 mls @ 0 mls/hr IRR Q24H [facility] Ibuprofen (Ibuprofen 200 Mg Tablet) 200 mg PO Q6HP PRN PRN Reason: Pain Lisinopril (Lisinopril 2.5 Mg Tablet) 2.5 mg PO DAILY [facility] Last Admin: 04/06/21 08:13 Dose: 2.5 mg Documented by: Morphine Sulfate (Morphine 4 Mg/Ml Vial) 2 mg IV Q4HP PRN; Protocol PRN Reason: Per Pain Protocol Ondansetron HCl (Ondansetron 4 Mg/2 Ml Vial) 4 mg IV Q6HP PRN PRN Reason: Nausea And Vomiting Oxycodone/Acetaminophen (Oxycodone/Apap 5/325mg Tablet) 1 tab PO Q4HP PRN; Protocol PRN Reason: Per Pain Protocol Promethazine HCl (Promethazine 25 Mg/Ml Vial) 12.5 mg IV Q6HP PRN PRN Reason: Nausea And Vomiting Senna (Sennosides 1 Tablet) 2 tab PO HS [facility] Last Admin: 04/05/21 21:24 Dose: Not Given Documented by: Sodium Chloride (0.9 % Sodium Chloride 10 Ml Syringe) 10 ml IV Q8 [facility] Last Admin: 04/06/21 05:07 Dose: 10 ml Documented by: Zolpidem Tartrate (Zolpidem 5 Mg Tablet) 5 mg PO HSP PRN PRN Reason: Insomnia A/P Assessment and plan (1) Morbid obesity: Status: Acute Comment: Comorbid risk factor. (2) Acute on chronic diastolic (congestive) heart failure: Status: Acute Comment: Per hospitalist. According to nursing staff, patient had a bradycardic episode last night. (3) Cellulitis of both lower extremities: Status: Acute (4) Left leg cellulitis: Status: Acute Comment: Jb is a 55-year-old morbidly obese man who was admitted for CHF and left leg cellulitis. He has been on antibiotics vancomycin for the past 7 days. He has noticed improvement in left leg erythema. Cultures have grown Streptococcus dysgalactaie and proteus. Proteus susceptibilities pending. Vancomycin can be discontinued. Resume cefepime at 2 g IV every 8 hours. I am expecting 3 more days of IV therapy before transition to oral Augmentin. The strep is likely the predominant pathogen. I have cautioned him that he is at risk for relapse and recurrent episodes of cellulitis secondary to body habitus and chronic lymphedema with open ulcerations. (5) Atrial fibrillation: Status: Acute (6) Hypochromic microcytic anemia: Status: Acute (7) Hypocalcemia: Status: Acute Narrative A/P Narrative: Assessment and Plans: 1. Acute on chronic CHF exacerbation: Stays in inpatient telemetry Intake and output Daily weigh 2L/d fluid restriction Supplemental oxygen via nasal cannula titrate to achieve oxygen saturation >=92% 2D echocardiogram: Good systolic function with LVEF 55-60%, signs of diastolic dysfunction and pulmonary HTN Lasix 40mg PO BID Lisinopril 2.5mg PO daily Coreg 25mg PO BID Physical and occupational therapies 2. Left lower extremity cellulitis: Blood culture X2 no growth to date Wound culture growing P. mirabilis and strep dysgalactiae Serial lactic acid Procalcitonin level d/c Vancomycin IV Starts Cefepime 2gm IV q8hr for 3 days, then transition to oral Augmentin Percocet PRN moderate pain Morphine IV PRN severe pain Tylenol PRN fever cbc w/ auto diff in the morning to trend WBC level Consult wound care team Dr. Molina recs. appreciated. No surgical debridement. Continue wound care, mist therapy, and antibiotics. Okay from s urgical stand point to discharge with 1 week follow up in office Consult ID lisa Coburns. appreciated 3. Morbid obesity: [employer] patient on the importance of life style modifications such as healthy diet and regular exercise in order to lose weight 4. Atrial fibrillation: [id number] score of 1 Continue Aspirin, no anticoagulation at this point Coreg 25mg PO BID 5. Microcytic hypochromic anemia: cbc w/ auto diff in the morning to trend H/H; transfuse pRBC if hemoglobin <7.0, active bleeding, or symptomatic Iron panel Vitamin B12 level Folate level 6. Hypocalcemia: Calcium carbonate oral replacement GI ppx: not currently indicated DVT ppx: Lovenox Code status: Full Prognosis: stable Disposition: inpatient med surg tele; PT OT: PT OT Time Spent With Patient Time: Total time spent is greater than 50% in coordination of care (as documented) at patient's floor/unit and/or counseling patient:
[2021-04-06] MEDS: CEFEPIME 2 GM VIAL IV SCH ×2 (11:26→22:20)
[2021-04-06] MEDS: GENTAMICIN SULFATE 40 MG, CLINDAMYCIN 300 MG in SODIUM CHLORIDE IRRIG SOLUTION 500 ML IRR SCH (11:58)
--- NOTE | 2021-04-06 13:44 | General Surgery Progress Note ---
SUBJECTIVE Subjective Patient information: Note initiated : 04/06/21 at 1:37 pm Service Date, if different from initiated Date: [] Patient: Jb Ghotra 55 y/o M admitted on 04/01/21 for CHF, Wounds. Chief Complaint: [] Additional PMFSH (Level 3 Only): Had uneventful weekend. Making slow and steady progress, with ambulation and local wound care. Seen by Dr. Luna, Infectious Diseases. Constitutional Vitals: Vital Signs Temp Pulse Resp BP Pulse Ox 97.6 F 67 18 148/86 84 L 04/06/21 11:54 04/06/21 11:54 04/06/21 11:54 04/06/21 11:54 04/06/21 11:54 Period Temp Pulse Resp BP Sys/Moya Pulse Ox Last 24 Hr 97.3 F-98.3 F 64-80 18-20 125-170/66-102 84-92 Intake and Output 04/05/21 04/06/21 04/06/21 21:59 05:59 13:59 Intake Total 480 600 980 Output Total 3600 900 Balance -3120 -300 980 Weight 492 lb 1 oz Intake & Output: Intake & Output 04/05/21 04/06/21 04/06/21 21:59 05:59 13:59 Intake Total 480 600 980 Output Total 3600 900 Balance -3120 -300 980 Weight 492 lb 1 oz Intake: IV 500 500 Vancomycin 1,500 mg In Sodium 500 500 Chloride 0.9% 500 ml @ 333.3 mls/hr IV Q12H [facility] Rx#: [id number] Oral 480 100 480 Output: Urine Catheter Amount 3600 900 Uretheral ([place]) 1200 Other: Meal Breakfast Percent of Meal Consumed 100% Urine Appearance Clear Clear Uretheral ([place]) Clear Urine Color Bright Yellow Bright Yellow Uretheral ([place]) Bright Yellow Urine Odor Normal Normal Uretheral ([place]) Normal Exam: AVSS. No changes DELIA. L/E: Wounds of LEFT leg and foot are improving. Open surface covered with demarcating slough over dermis. Stage 2 wounds. Dry scales / dermatitis stable and gradually softening scales. Wound C/s Strep / Proteus. I D recommendations noted. Appreciated. Examined LLE wounds with Julia CHAVIS, Inpatient wound care nurse. A/P Narrative A/P Narrative: Assessment: Satisfactory progress. To continue with ongoing wound care. Plan: Continue present treatment. For PO antibiotics at discharge per ID. Please check with hospitalist Physician about D/C [place] at time of discharge. If D/C Follow up at wound care center in 1 week. Time Spent With Patient Time: Total time spent is greater than 50% in coordination of care (as documented) at patient's floor/unit and/or counseling patient: Total time spent with greater than 50% in coordination of care (as documented) at patient's floor/unit and/or counseling patient:: 25 - 35 minutes
[2021-04-06] MEDS: SENNOSIDES 1 TABLET PO SCH (20:33)
[2021-04-07] MEDS: CEFEPIME 2 GM VIAL IV SCH ×3 (05:45→22:20)
[2021-04-07] MEDS: 0.9 % SODIUM CHLORIDE 10 ML SYRINGE IV SCH ×3 (05:45→22:15)
[2021-04-07 06:56] LABS: Eosinophils # (Auto) 0.21 K/mcL (0.00-0.70); Hematocrit 39.8 % (41.0-55.0); Lymphocytes # (Auto) 4.14 K/mcL (1.50-4.80); Lymphocytes % (Auto) 39.7 % (15.0-49.0); Mean Cell Volume 75.5 fL (80.0-100.0); Mean Corpuscular HGB Conc 27.6 g/dL (31.0-36.0); Mean Platelet Volume 10.2 fL (7.4-10.4); Monocytes # (Auto) 0.89 K/mcL (0.10-0.90); Monocytes % (Auto) 8.5 % (1.0-12.0); Neutrophils % (Auto) 48.8 % (38.0-78.0); Platelet Count 328 K/mcL (140-440); RBC 5.27 M/mcL (4.50-5.90); Red Cell Distribution Width 18.9 % (11.5-14.5); WBC 10.4 K/mcL (4.5-11.0)
[2021-04-07 07:20] LABS: ALT/SGPT 5 U/L (<40); AST/SGOT 11 U/L (<40); Albumin 2.8 gm/dL (3.2-5.2); Albumin/Globulin Ratio 1.6 (1.0-2.3); Alkaline Phosphatase 77 U/L (39-117); Bilirubin,Total 0.4 mg/dL (0.1-1.0); Blood Urea Nitrogen 6 mg/dL (6-20); Calcium 8.4 mg/dL (8.6-10.4); Carbon Dioxide 32 mmol/L (22-30); Chloride 100 mmol/L (96-108); Globulin 1.8 gm/dL (2.2-3.7); Glomerular Filtration Rate 111; Glucose 92 mg/dL (70-105); Iron 40 ug/dL (61-157)
[2021-04-07] MEDS: LISINOPRIL 2.5 MG TABLET PO SCH (08:14)
[2021-04-07] MEDS: CALCIUM CARBONATE 500 MG TAB.CHEW PO SCH ×2 (08:14→22:21)
[2021-04-07] MEDS: ENOXAPARIN 40 MG/0.4 ML SYRINGE SQ SCH (08:14)
[2021-04-07] MEDS: ASPIRIN 81 MG TAB.CHEW PO SCH (08:14)
[2021-04-07] MEDS: FUROSEMIDE 40 MG TABLET PO SCH ×2 (08:14→15:57)
[2021-04-07] MEDS: DOCUSATE SODIUM 100 MG CAPSULE PO SCH ×2 (08:41→20:51)
--- NOTE | 2021-04-07 09:30 | Internal Med Progress Note ---
SUBJECTIVE Subjective Patient information: Note initiated : 04/07/21 at 9:28 am Service Date, if different from initiated Date: [] Patient: Jb Ghotra 55 y/o M admitted on 04/01/21 for CHF, Wounds. Chief Complaint: [Left leg cellulitis] 04/02/21: Patient is c/o mild to moderate burning pain of his left lower leg. c/o SOB. Still on 4L/min oxygen. Denies chest pain. Denies fever or chills or sweating. Wound and blood cultures no growth to date. 04/03/21: Afebrile overnight. Wound culture growing gram negative bacillus. On 3L/min oxygen. Denies leg pain. Denies fever or chills. 04/04/21: Afebrile overnight. On 2L/min oxygen. Wound culture growing gram negative bacillus and strep dysgalactiae. C/o mild left leg pain. Denies fever or chills or sweating. 04/05/21: Afebrile overnight. On 1L/min oxygen. Wound culture growing gram negative bacillus and strep dysgalactiae. C/o mild left leg pain. Denies fever or chills or sweating. 04/06/21: Afebrile overnight. On 1L/min oxygen. Wound culture growing Proteus mirabilis and Strep dysgalactiae. Denies left leg pain. Denies fever or chills or sweating. 04/07/21: Afebrile overnight. Tolerating room air. Wound culture growing Proteus mirabilis and Strep dysgalactiae. c/o mild left leg pain when ambulating. Denies fever or chills or sweating. Constitutional Vitals: Vital Signs Temp Pulse Resp BP Pulse Ox 36.0 C L 61 22 140/88 94 04/07/21 08:00 04/07/21 08:00 04/07/21 08:00 04/07/21 08:00 04/07/21 08:00 Period Temp Pulse Resp BP Sys/Moya Pulse Ox Last 24 Hr 36.0 C-36.8 C 57-71 18-24 114-148/69-88 84-94 Intake and Output 04/06/21 04/07/21 04/07/21 21:59 05:59 13:59 Intake Total 1080 540 240 Output Total 3100 5 240 Intake & Output: Intake & Output 04/06/21 04/07/21 04/07/21 21:59 05:59 13:59 Intake Total 1080 540 240 Output Total 3100 5 Balance 240 Intake: Oral 1080 540 240 Output: Urine Catheter Amount 3100 2225 Uretheral (Castillo) 1800 Other: Meal Dinner Breakfast Percent of Meal Consumed 100% 100% Feeding Ability Assist with Tray Set Up Urine Appearance Clear Clear Uretheral (Castillo) Clear Urine Color Bright Yellow Dark Yellow Uretheral (Castillo) Bright Yellow Urine Odor Normal Normal Uretheral (Castillo) Normal General appearance: cooperative and no acute distress Head Head exam: Present atraumatic and normocephalic Eye Eye exam: Present EOMI and PERRL ENT ENT exam: Present mucous membranes moist, normal exam and normal external ear exam Neck Neck exam: Present normal inspection; Absent lymphadenopathy, tenderness and thyromegaly Respiratory Respiratory exam: Absent accessory muscle use, respiratory distress and wheezes Cardiovascular Cardiovascular exam: Present normal rate and rhythm; Absent JVD GI/Abdominal GI/Abdominal exam: Present normal bowel sounds and soft; Absent organomegaly and tenderness Additional comments: Obese abdomen Abdominal skin fold intertrigo region covered with zinc oxide dry poweder Rectal Rectal exam: Present deferred Additional comments: Castillo catheter in place Extremities Exam Extremities exam: Present full ROM, normal capillary refill and normal inspection; Absent tenderness Neurological Exam Neurological exam: Present alert, CN II-XII intact and oriented X3; Absent motor sensory deficit Psychiatric Psychiatric exam: Present normal affect and normal mood; Absent anxious and depressed Skin Skin exam: Absent dry and intact Additional comments: Left lower leg wrapped in surgical dressing. +foul smelling Left thigh indurated, erythematic, warm to touch Abdominal skin fold intertrigo region covered with zinc oxide dry powder OBJ DATA Labs CBC & Chem 7: 04/07/21 05:50 04/07/21 05:50 Labs: Abnormal Lab Results 04/07/21 04/07/21 04/06/21 05:50 05:50 05:10 WBC Hgb 11.0 L Hct 39.8 L MCV 75.5 L MCH 20.9 L MCHC 27.6 L RDW 18.9 H MPV Lymph # (Auto) Carbon Dioxide 32 H Anion Gap 6.0 L Creatinine 0.6 L 0.6 L Calcium 8.4 L Iron 40 L Total Protein 4.6 L 4.5 L Albumin 2.8 L 2.6 L Globulin 1.8 L 1.9 L 04/06/21 04/05/21 04/05/21 05:10 05:52 05:52 WBC 11.1 H Hgb 10.9 L 11.1 L Hct 39.8 L 40.3 L MCV 75.2 L 75.6 L MCH 20.6 L 20.8 L MCHC 27.4 L 27.5 L RDW 18.3 H 18.3 H MPV 10.6 H Lymph # (Auto) 4.96 H Carbon Dioxide 32 H Anion Gap 7.0 L Creatinine 0.6 L Calcium 8.2 L Iron Total Protein 4.7 L Albumin 2.7 L Globulin 2.0 L Meds: Medications Acetaminophen (Acetaminophen 325 Mg Tablet) 650 mg PO Q6HP PRN; Protocol PRN Reason: Per Pain Protocol/Fever > 101 Aspirin (Aspirin 81 Mg Tab.Chew) 81 mg PO DAILY [facility] Last Admin: 04/07/21 08:14 Dose: 81 mg Documented by: Bisacodyl (Bisacodyl 10 Mg Supp.Rect) 10 mg KS Q2-3DAYS PRN PRN Reason: Constipation Calcium Carbonate/Glycine (Calcium Carbonate 500 Mg Tab.Chew) 500 mg PO BID [facility] Last Admin: 04/07/21 08:14 Dose: 500 mg Documented by: Carvedilol (Carvedilol 12.5 Mg Tablet) 25 mg PO BIDCC [facility] Last Admin: 04/06/21 16:43 Dose: 25 mg Documented by: Cefepime HCl (Cefepime 2 Gm Vial) 2 gm IV Q8H [facility]; Protocol Last Admin: 04/07/21 05:45 Dose: 2 gm Documented by: Docusate Sodium (Docusate Sodium 100 Mg Capsule) 100 mg PO BID [facility] Last Admin: 04/07/21 08:41 Dose: Not Given Documented by: Enoxaparin Sodium (Enoxaparin 40 Mg/0.4 Ml Syringe) 40 mg SQ DAILY [facility] Last Admin: 04/07/21 08:14 Dose: 40 mg Documented by: Furosemide (Furosemide 40 Mg Tablet) 40 mg PO BIDD [facility] Last Admin: 04/07/21 08:14 Dose: 40 mg Documented by: Hydralazine HCl (Hydralazine 20 Mg/Ml Vial) 10 mg IV Q4-6HP PRN PRN Reason: Hypertension Gentamicin Sulfate 40 mg/Clindamycin Phosphate 300 mg/Sodium Chloride 503 mls @ 0 mls/hr IRR Q24H [facility] Last Admin: 04/06/21 11:58 Dose: 1 mls/hr Documented by: Ibuprofen (Ibuprofen 200 Mg Tablet) 200 mg PO Q6HP PRN PRN Reason: Pain Lisinopril (Lisinopril 2.5 Mg Tablet) 2.5 mg PO DAILY [facility] Last Admin: 04/07/21 08:14 Dose: 2.5 mg Documented by: Morphine Sulfate (Morphine 4 Mg/Ml Vial) 2 mg IV Q4HP PRN; Protocol PRN Reason: Per Pain Protocol Ondansetron HCl (Ondansetron 4 Mg/2 Ml Vial) 4 mg IV Q6HP PRN PRN Reason: Nausea And Vomiting Oxycodone/Acetaminophen (Oxycodone/Apap 5/325mg Tablet) 1 tab PO Q4HP PRN; Protocol PRN Reason: Per Pain Protocol Promethazine HCl (Promethazine 25 Mg/Ml Vial) 12.5 mg IV Q6HP PRN PRN Reason: Nausea And Vomiting Senna (Sennosides 1 Tablet) 2 tab PO HS [facility] Last Admin: 04/06/21 20:33 Dose: Not Given Documented by: Sodium Chloride (0.9 % Sodium Chloride 10 Ml Syringe) 10 ml IV Q8 [facility] Last Admin: 04/07/21 05:45 Dose: 10 ml Documented by: Zolpidem Tartrate (Zolpidem 5 Mg Tablet) 5 mg PO HSP PRN PRN Reason: Insomnia A/P Assessment and plan (1) Morbid obesity: Status: Acute Comment: Comorbid risk factor. (2) Acute on chronic diastolic (congestive) heart failure: Status: Acute Comment: Per hospitalist. According to nursing staff, patient had a bradycardic episode last night. (3) Cellulitis of both lower extremities: Status: Acute (4) Left leg cellulitis: Status: Acute Comment: Jb is a 55-year-old morbidly obese man who was admitted for CHF and left leg cellulitis. He has been on antibiotics vancomycin for the past 7 days. He has noticed improvement in left leg erythema. Cultures have grown Streptococcus dysgalactaie and proteus. Proteus susceptibilities pending. Vancomycin can be discontinued. Resume cefepime at 2 g IV every 8 hours. I am expecting 3 more days of IV therapy before transition to oral Augmentin. The strep is likely the predominant pathogen. I have cautioned him that he is at risk for relapse and recurrent episodes of cellulitis secondary to body habitus and chronic lymphedema with open ulcerations. (5) Atrial fibrillation: Status: Acute (6) Hypochromic microcytic anemia: Status: Acute (7) Hypocalcemia: Status: Acute Narrative A/P Narrative: Assessment and Plans: 1. Acute on chronic CHF exacerbation: Stays in inpatient telemetry Intake and output Daily weigh 2L/d fluid restriction Supplemental oxygen via nasal cannula titrate to achieve oxygen saturation >=92% 2D echocardiogram: Good systolic function with LVEF 55-60%, signs of diastolic dysfunction and pulmonary HTN Lasix 40mg PO BID Lisinopril 2.5mg PO daily Coreg 25mg PO BID Physical and occupational therapies 2. Left lower extremity cellulitis: Blood culture X2 no growth to date Wound culture growing P. mirabilis and strep dysgalactiae Serial lactic acid Procalcitonin level d/c Vancomycin IV Starts Cefepime 2gm IV q8hr for 3 days, then transition to oral Augmentin Percocet PRN moderate pain Morphine IV PRN severe pain Tylenol PRN fever cbc w/ auto diff in the morning to trend WBC level Consult wound care team Dr. Molina, recs. appreciated. No surgical debridement. Continue wound care, mist therapy, and antibiotics. Okay from surgi aleshia stand point to discharge with 1 week follow up in office Consult ID Dr. Luna, recs. appreciated 3. Morbid obesity: Hospice Chaplain patient on the importance of life style modifications such as healthy diet and regular exercise in order to lose weight 4. Atrial fibrillation: [id number] score of 1 Continue Aspirin, no anticoagulation at this point Coreg 25mg PO BID 5. Microcytic hypochromic anemia: cbc w/ auto diff in the morning to trend H/H; transfuse pRBC if hemoglobin <7.0, active bleeding, or symptomatic Iron panel Vitamin B12 level Folate level 6. Hypocalcemia: Calcium carbonate oral replacement GI ppx: not currently indicated DVT ppx: Lovenox Code status: Full Prognosis: stable Disposition: inpatient med surg tele; PT OT: PT OT Time Spent With Patient Time: Total time spent is greater than 50% in coordination of care (as documented) at patient's floor/unit and/or counseling patient:
[2021-04-07] MEDS: CARVEDILOL 12.5 MG TABLET PO SCH (10:28)
[2021-04-07] MEDS: GENTAMICIN SULFATE 40 MG, CLINDAMYCIN 300 MG in SODIUM CHLORIDE IRRIG SOLUTION 500 ML IRR SCH (14:03)
[2021-04-07] MEDS: SENNOSIDES 1 TABLET PO SCH (20:51)
--- NOTE | 2021-04-07 21:06 | EKG ---
[facility] Test Date: 2021-04-07 Pat Name: Jb Ghotra Department: [facility] Room: 108 Gender: Male Final Finisher: : 1965 Requested By: Maurice Mcmlulen Order Number: [id number] Reading MD: Hermann Lara M.D. Measurements Intervals [place] Rate: 58 P: WI: QRS: 84 QRSD: 136 T: QT: 464 QTc: 456 Interpretive Statements ATRIAL FIBRILLATION RIGHT BUNDLE BRANCH BLOCK PROBABLE ANTEROSEPTAL INFARCT, AGE INDETERM Since previous ECG of 04-01-2021, 1712, NSC ABNORMAL ECG Electronically Signed On 04-07-2021 21:05:59 PDT by Hermann Lara M.D. /[facility] [place]//[id number]
[2021-04-08] MEDS: 0.9 % SODIUM CHLORIDE 10 ML SYRINGE IV SCH ×3 (05:50→21:45)
[2021-04-08] MEDS: CEFEPIME 2 GM VIAL IV SCH ×3 (05:52→21:45)
--- NOTE | 2021-04-08 06:26 | Infectious Disease Consult ---
HPI Data of Consult Consult date: 04/08/21 Primary Care Provider: Unknown Unknown Consult Narrative Patient Information: Note initiated : 04/08/21 at 6:19 am Service Date, if different from initiated Date: [04/08/21] Patient: Jb Ghotra 55 y/o M admitted on 04/01/21 for CHF, Wounds. Chief Complaint: [] Jb is a 55-year-old morbidly obese man who was admitted for left leg cellulitis. He is currently day 9 IV cefepime. Cultures of the left leg wound have grown strep dysgalactaie and Proteus. Proteus has turned out to be a possible ESBL organism. Sensitivity panel pending. He is ambulatory with a walker. Prior to admission he used double canes to ambulate. He has noticed improvement in the left leg. He continues to have bradycardic episodes. He is asymptomatic with bradycardia. No complaints of chest pain or shortness of breath he remains on 1 L by nasal cannula. 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 other: lives near [place] MEDS/ALLERGIES Home Medications and Allergies Home Medications Medication Instructions Recorded Confirmed Type furosemide 40 - 60 mg PO DAILY MDD 60 04/01/21 04/01/21 History ibuprofen [Advil] 200 mg PO Q6H PRN MDD 800 04/01/21 04/01/21 History Allergies Allergy/AdvReac Type Severity Reaction Status Date / Time No Known Allergies Allergy Verified 04/01/21 16:19 Physical Examination Vital Signs Vital signs: Afebrile at 97.6. Temp Pulse Resp BP Pulse Ox 97.6 F 65 22 142/87 95 04/08/21 04:19 04/08/21 04:19 04/08/21 04:19 04/08/21 04:19 04/08/21 04:19 Additional Exam Additional exam: General: He is laying comfortably in bed. No active coughing. No acute distress. HEENT: No facial swelling. Lungs are clear bilaterally. Heart: Regular rate and rhythm without murmur. Abdomen obese. Extremities: 4+ lower extremity edema left greater than right. Chronic dyshidrotic skin. Remedy cream at bedside. He needs more liberal use his skin is very dry. I did not remove the dressing today. Minimal erythema at the top of the dressing. No knee tenderness. Results Laboratory Findings CBC and BMP: 04/07/21 05:50 04/07/21 05:50 Abnormal lab findings: Abnormal Labs 04/02/21 04/02/21 04/02/21 05:18 05:18 05:19 WBC 14.3 H Hgb 10.8 L Hct 39.3 L MCV 76.3 L MCH 21.0 L MCHC 27.5 L RDW 18.6 H MPV Lymph # (Auto) Absolute Neutrophils 10.44 H Carbon Dioxide Anion Gap Creatinine Calcium 8.1 L Iron Transferrin % Sat Total Protein 4.7 L Albumin 2.6 L Globulin 2.1 L Procalcitonin 0.20 H 04/03/21 04/03/21 04/04/21 05:12 05:12 05:38 WBC 13.3 H 11.4 H Hgb 10.7 L 10.8 L Hct 39.3 L 39.1 L MCV 75.6 L 75.0 L MCH 20.6 L 20.7 L MCHC 27.2 L 27.6 L RDW 18.4 H 18.1 H MPV Lymph # (Auto) Absolute Neutrophils 9.16 H Carbon Dioxide Anion Gap Creatinine 0.6 L Calcium 8.1 L Iron 15 L Transferrin % Sat 6 L Total Protein 4.6 L Albumin 2.6 L Globulin 2.0 L Procalcitonin 04/04/21 04/05/21 04/05/21 05:38 05:52 05:52 WBC 11.1 H Hgb 11.1 L Hct 40.3 L MCV 75.6 L MCH 20.8 L MCHC 27.5 L RDW 18.3 H MPV 10.6 H Lymph # (Auto) Absolute Neutrophils Carbon Dioxide 33 H 32 H Anion Gap 6.0 L 7.0 L Creatinine 0.6 L 0.6 L Calcium 8.4 L 8.2 L Iron Transferrin % Sat Total Protein 4.6 L 4.7 L Albumin 2.7 L 2.7 L Globulin 1.9 L 2.0 L Procalcitonin 04/06/21 04/06/21 04/07/21 05:10 05:10 05:50 WBC Hgb 10.9 L 11.0 L Hct 39.8 L 39.8 L MCV 75.2 L 75.5 L MCH 20.6 L 20.9 L MCHC 27.4 L 27.6 L RDW 18.3 H 18.9 H MPV Lymph # (Auto) 4.96 H Absolute Neutrophils Carbon Dioxide Anion Gap Creatinine 0.6 L Calcium Iron Transferrin % Sat Total Protein 4.5 L Albumin 2.6 L Globulin 1.9 L Procalcitonin 04/07/21 05:50 WBC Hgb Hct MCV MCH MCHC RDW MPV Lymph # (Auto) Absolute Neutrophils Carbon Dioxide 32 H Anion Gap 6.0 L Creatinine 0.6 L Calcium 8.4 L Iron 40 L Transferrin % Sat Total Protein 4.6 L Albumin 2.8 L Globulin 1.8 L Procalcitonin white count 10.4 creatinine 0.6. Microbiology: Microbiology 04/01/21 16:37 Ankle - Left Gram Stain - Final 04/01/21 16:37 Ankle - Left Wound Culture - Final Proteus mirabilis Streptococcus dysgalactiae Proteus susceptibilities pending. Possible ESBL. A/P Assessment and plan (1) Skin ulcer: Status: Acute Comment: Dr. Don involved with wound care management for left lower extremity ulcerations. I would recommend increased use of remedy lotion. Transition from IV cefepime tomorrow to oral Augmentin. Dose of Augmentin XR 1 g twice daily for 30 days. 2 refills. I would be happy to see him in follow-up in clinic in 2 weeks to provide guidance on duration of oral antibiotic therapy. (2) Lymphedema: Status: Acute Comment: Diuretic management per hospitalist (3) Left leg cellulitis: Status: Acute Comment: Jb is a 55-year-old morbidly obese man who was admitted for CHF and left leg cellulitis. He has been on antibiotics vancomycin for the past 9 days. He has noticed improvement in left leg erythema. Cultures have grown Streptococcus dysgalactaie and proteus. Proteus susceptibilities pending. The strep is likely the predominant pathogen. I have cautioned him that he is at risk for relapse and recurrent episodes of cellulitis secondary to body habitus and chronic lymphedema with open ulcerations. Patient is having episodes of bradycardia which limits discharge at this time. (4) Morbid obesity: Status: Acute Comment: Comorbid risk factor. Time Spent With Patient Time: Total time spent is greater than 50% in coordination of care (as documented) at patient's floor/unit and/or counseling patient:
[2021-04-08 08:05] LABS: Basophils # (Auto) 0.08 K/mcL (0.00-0.20); Basophils % (Auto) 0.7 % (0.0-2.0); Eosinophils # (Auto) 0.19 K/mcL (0.00-0.70); Eosinophils % (Auto) 1.7 % (0.0-7.0); Hemoglobin 11.3 g/dL (13.5-16.5); Lymphocytes # (Auto) 4.28 K/mcL (1.50-4.80); Lymphocytes % (Auto) 37.5 % (15.0-49.0); Mean Cell Volume 76.6 fL (80.0-100.0); Mean Corpuscular HGB Conc 26.9 g/dL (31.0-36.0); Mean Platelet Volume 10.5 fL (7.4-10.4); Monocytes # (Auto) 0.87 K/mcL (0.10-0.90); Monocytes % (Auto) 7.6 % (1.0-12.0); Neutrophils % (Auto) 52.5 % (38.0-78.0); Platelet Count 347 K/mcL (140-440); RBC 5.48 M/mcL (4.50-5.90); Red Cell Distribution Width 19.5 % (11.5-14.5); WBC 11.4 K/mcL (4.5-11.0)
[2021-04-08] MEDS: ENOXAPARIN 40 MG/0.4 ML SYRINGE SQ SCH (08:21)
[2021-04-08] MEDS: FUROSEMIDE 40 MG TABLET PO SCH ×2 (08:22→15:30)
[2021-04-08] MEDS: DOCUSATE SODIUM 100 MG CAPSULE PO SCH ×2 (08:22→20:29)
[2021-04-08] MEDS: CALCIUM CARBONATE 500 MG TAB.CHEW PO SCH ×2 (08:22→20:29)
[2021-04-08] MEDS: ASPIRIN 81 MG TAB.CHEW PO SCH (08:22)
[2021-04-08] MEDS: LISINOPRIL 2.5 MG TABLET PO SCH (08:22)
--- NOTE | 2021-04-08 11:16 | Internal Med Progress Note ---
SUBJECTIVE Subjective Patient information: Note initiated : 04/08/21 at 11:15 am Service Date, if different from initiated Date: [] Patient: Jb Ghotra a 55 y/o M admitted on 04/01/21 for CHF, Wounds. Chief Complaint: [] Interval history: History of present illness: Mr. Ghotra is a 55 year old M history of diastolic CHF, chronic bilateral lower extremity swelling, presenting with a couple day history of acute on chronic shortness of breath as well as 3 months history of worsening swelling and skin breakdown of the left lower extremities. Patient is complaining of acute on chronic shortness of breath over the past couple of days and he does not use oxygen at home. He denies any cough, chest pain, wheezing, or sputum production. He denies any fever or chills. In addition, he noticed worsening swelling, skin breakdown, as well as burning pain 7 out of 10 constant of his left lower extremities. He has not been treated with antibiotics. He presented to [facility] ER for his symptoms and he was admitted on March 31, 2021. The general surgeons was consulted and he recommended patient is to be transferred to our facility for dedicated wound care consult. 04/02/21: Patient is c/o mild to moderate burning pain of his left lower leg. c/o SOB. Still on 4L/min oxygen. Denies chest pain. Denies fever or chills or sweating. Wound and blood cultures no growth to date. 04/03/21: Afebrile overnight. Wound culture growing gram negative bacillus. On 3L/min oxygen. Denies leg pain. Denies fever or chills. 04/04/21: Afebrile overnight. On 2L/min oxygen. Wound culture growing gram negative bacillus and strep dysgalactiae. C/o mild left leg pain. Denies fever or chills or sweating. 04/05/21: Afebrile overnight. On 1L/min oxygen. Wound culture growing gram negative bacillus and strep dysgalactiae. C/o mild left leg pain. Denies fever or chills or sweating. 04/06/21: Afebrile overnight. On 1L/min oxygen. Wound culture growing Proteus mirabilis and Strep dysgalactiae. Denies left leg pain. Denies fever or chills or sweating. 04/07/21: Afebrile overnight. Tolerating room air. Wound culture growing Proteus mirabilis and Strep dysgalactiae. c/o mild left leg pain when ambulating. Denies fever or chills or sweating 04/08-patient continuing on cefepime per ID recommendations. Will transition to oral Augmentin on 04/09. Continue to diurese. Feels a lot better. DC Csatillo's catheter today. Ambulate/continue therapies. Patient reluctant to move to SNF. Will likely discharge home with outpatient rehab/wound care/antibiotics per ID recommendations. We will follow-up with ID clinic as outpatient on discharge. Constitutional Vitals: Vital Signs Temp Pulse Resp BP Pulse Ox 97.5 F 56 L 22 131/78 93 04/08/21 08:00 04/08/21 08:00 04/08/21 08:00 04/08/21 08:00 04/08/21 08:00 Period Temp Pulse Resp BP Sys/Moya Pulse Ox Last 24 Hr 96.5 F-98.4 F 50-65 - 117-164/64-115 91-95 Intake and Output 04/07/21 04/08/21 04/08/21 21:59 05:59 13:59 Intake Total 400 560 Output Total 1825 750 Balance -1425 -190 Weight 223.196 kg alert oriented Nonlabored breathing Morbidly obese Lower extremity lymphedema improving. Intake & Output: Intake & Output 04/07/21 04/08/21 04/08/21 21:59 05:59 13:59 Intake Total 400 560 Output Total 1825 750 Balance -1425 -190 Weight 223.196 kg Intake: Oral 400 560 Output: Urine Catheter Amount 1825 750 Other: Meal Dinner Percent of Meal Consumed 100% Urine Appearance Clear Clear Uretheral (Castillo) Clear Hematuria Urine Color [place] Dark Yellow Light Joyce Uretheral (Castillo) Blood Tinged Urine Odor Normal Uretheral (Castillo) Normal OBJ DATA Labs CBC & Chem 7: 04/08/21 06:55 04/07/21 05:50 Labs: Abnormal Lab Results 04/08/21 04/07/21 04/07/21 06:55 05:50 05:50 WBC 11.4 H Hgb 11.3 L 11.0 L Hct 39.8 L MCV 76.6 L 75.5 L MCH 20.6 L 20.9 L MCHC 26.9 L 27.6 L RDW 19.5 H 18.9 H MPV 10.5 H Lymph # (Auto) Carbon Dioxide 32 H Anion Gap 6.0 L Creatinine 0.6 L Calcium 8.4 L Iron 40 L Total Protein 4.6 L Albumin 2.8 L Globulin 1.8 L 04/06/21 04/06/21 05:10 05:10 WBC Hgb 10.9 L Hct 39.8 L MCV 75.2 L MCH 20.6 L MCHC 27.4 L RDW 18.3 H MPV Lymph # (Auto) 4.96 H Carbon Dioxide Anion Gap Creatinine 0.6 L Calcium Iron Total Protein 4.5 L Albumin 2.6 L Globulin 1.9 L Meds: Medications Acetaminophen (Acetaminophen 325 Mg Tablet) 650 mg PO Q6HP PRN; Protocol PRN Reason: Per Pain Protocol/Fever > 101 Aspirin (Aspirin 81 Mg Tab.Chew) 81 mg PO DAILY [facility] Last Admin: 04/08/21 08:22 Dose: 81 mg Documented by: Bisacodyl (Bisacodyl 10 Mg Supp.Rect) 10 mg SD Q2-3DAYS PRN PRN Reason: Constipation Calcium Carbonate/Glycine (Calcium Carbonate 500 Mg Tab.Chew) 500 mg PO BID [facility] Last Admin: 04/08/21 08:22 Dose: 500 mg Documented by: Cefepime HCl (Cefepime 2 Gm Vial) 2 gm IV Q8H [facility]; Protocol Last Admin: 04/08/21 05:52 Dose: 2 gm Documented by: Docusate Sodium (Docusate Sodium 100 Mg Capsule) 100 mg PO BID [facility] Last Admin: 04/08/21 08:22 Dose: 100 mg Documented by: Enoxaparin Sodium (Enoxaparin 40 Mg/0.4 Ml Syringe) 40 mg SQ DAILY [facility] Last Admin: 04/08/21 08:21 Dose: 40 mg Documented by: Furosemide (Furosemide 40 Mg Tablet) 40 mg PO BIDD [facility] Last Admin: 04/08/21 08:22 Dose: 40 mg Documented by: Hydralazine HCl (Hydralazine 20 Mg/Ml Vial) 10 mg IV Q4-6HP PRN PRN Reason: Hypertension Gentamicin Sulfate 40 mg/Clindamycin Phosphate 300 mg/Sodium Chloride 503 mls @ 0 mls/hr IRR Q24H [facility] Last Admin: 04/07/21 14:03 Dose: 1 mls/hr Documented by: Ibuprofen (Ibuprofen 200 Mg Tablet) 200 mg PO Q6HP PRN PRN Reason: Pain Lisinopril (Lisinopril 2.5 Mg Tablet) 2.5 mg PO DAILY [facility] Last Admin: 04/08/21 08:22 Dose: 2.5 mg Documented by: Morphine Sulfate (Morphine 4 Mg/Ml Vial) 2 mg IV Q4HP PRN; Protocol PRN Reason: Per Pain Protocol Ondansetron HCl (Ondansetron 4 Mg/2 Ml Vial) 4 mg IV Q6HP PRN PRN Reason: Nausea And Vomiting Oxycodone/Acetaminophen (Oxycodone/Apap 5/325mg Tablet) 1 tab PO Q4HP PRN; Protocol PRN Reason: Per Pain Protocol Promethazine HCl (Promethazine 25 Mg/Ml Vial) 12.5 mg IV Q6HP PRN PRN Reason: Nausea And Vomiting Senna (Sennosides 1 Tablet) 2 tab PO HS [facility] Last Admin: 04/07/21 20:51 Dose: Not Given Documented by: Sodium Chloride (0.9 % Sodium Chloride 10 Ml Syringe) 10 ml IV Q8 [facility] Last Admin: 04/08/21 05:50 Dose: 10 ml Documented by: Zolpidem Tartrate (Zolpidem 5 Mg Tablet) 5 mg PO HSP PRN PRN Reason: Insomnia A/P Narrative A/P Narrative: * Acute on chronic CHF exacerbation:Continue daily weights/restriction/diuresis 2D echocardiogram: Good systolic function with LVEF 55-60%, signs of diastolic dysfunction and pulmonary HTN 20 VALERIA inhibitor. Patient did not tolerate beta-madhavi due to bradycardia. Continue daily therapies * Acute on chronic hypoxic respiratory failure secondary to decompensated heart failure. Clinically resolved. Now oxygen requirement at baseline * Left lower extremity cellulitis: Proteus mirabilis/trabeculectomy on cultures. Continue cefepime. Transition to Augmentin on 04/09 per ID. Wound care team Dr. Molina on board, * Atrial fibrillation, rate controlled. Not on anticoagulation. Continue aspirin * Microcytic hypochromic anemia: * Prophylaxis Lovenox * PT OT nutrition support Plan * Transition to oral Augmentin in 24 hours * Daily wound care/therapy/ambulation * Possible discharge in 24 hours with home oxygen/outpatient wound care/therapies Time Spent With Patient Time: Total time spent is greater than 50% in coordination of care (as documented) at patient's floor/unit and/or counseling patient:
[2021-04-08] MEDS: GENTAMICIN SULFATE 40 MG, CLINDAMYCIN 300 MG in SODIUM CHLORIDE IRRIG SOLUTION 500 ML IRR SCH (11:48)
--- NOTE | 2021-04-08 14:09 | General Surgery Progress Note ---
SUBJECTIVE Subjective Patient information: Note initiated : 04/08/21 at 2:04 pm Service Date, if different from initiated Date: [] Patient: Jb Ghotra 55 y/o M admitted on 04/01/21 for CHF, Wounds. Chief Complaint: [] Additional PMFSH (Level 3 Only): Progressing well. Likely to be discharged on PO antibiotics. Constitutional Vitals: Vital Signs Temp Pulse Resp BP Pulse Ox 97.5 F 56 L 22 123/75 91 04/08/21 12:00 04/08/21 12:00 04/08/21 12:00 04/08/21 12:00 04/08/21 12:00 Period Temp Pulse Resp BP Sys/Moya Pulse Ox Last 24 Hr 96.5 F-98.4 F 50-65 22-22 117-164/72-115 91-95 Intake and Output 04/08/21 04/08/21 04/08/21 05:59 13:59 21:59 Intake Total 560 Output Total 750 Balance -190 Intake & Output: Intake & Output 04/08/21 04/08/21 04/08/21 05:59 13:59 21:59 Intake Total 560 Output Total 750 Balance -190 Intake: Oral 560 Output: Urine Catheter Amount 750 Other: Urine Appearance Clear Urine Color Dark Yellow Light Joyce Exam: AVSS.No changes DELIA. LEFT leg wounds examined. Resolved cellulitis LEFT thigh. Left leg and foot: Crust / scales demarcating well. Continue with MIST when in hospital. May change to Hibiclens for Leg and Bacitracin to open areas daily Clear urine in bag. Castillo catheter to be d/c when discharged. PO antibiotics per Dr. Luna. Patient has NOT decided, BUT will likely come to [facility] wound clinic for f/u. A/P Narrative A/P Narrative: Assessment; I saw this patient with Presley RN ( Inpatient wound care nurse ) Plan: Wound care to continue as ordered. F/U at [facility], IF patient prefers. Time Spent With Patient Time: Total time spent is greater than 50% in coordination of care (as documented) at patient's floor/unit and/or counseling patient: Total time spent with greater than 50% in coordination of care (as documented) at patient's floor/unit and/or counseling patient:: 25 - 35 minutes
[2021-04-08] MEDS: SENNOSIDES 1 TABLET PO SCH (20:29)
[2021-04-09] MEDS: 0.9 % SODIUM CHLORIDE 10 ML SYRINGE IV SCH ×2 (05:35→14:11)
[2021-04-09] MEDS: CEFEPIME 2 GM VIAL IV SCH (05:35)
[2021-04-09] MEDS: CALCIUM CARBONATE 500 MG TAB.CHEW PO SCH (08:24)
[2021-04-09] MEDS: ASPIRIN 81 MG TAB.CHEW PO SCH (08:24)
[2021-04-09] MEDS: LISINOPRIL 2.5 MG TABLET PO SCH (08:25)
[2021-04-09] MEDS: FUROSEMIDE 40 MG TABLET PO SCH ×2 (08:25→16:00)
[2021-04-09] MEDS: ENOXAPARIN 40 MG/0.4 ML SYRINGE SQ SCH (08:25)
[2021-04-09] MEDS: DOCUSATE SODIUM 100 MG CAPSULE PO SCH (08:25)
--- NOTE | 2021-04-09 10:28 | Discharge Summary ---
Discharge Provider Provider Patient information: Note initiated : 04/09/21 at 10:26 am Service Date, if different from initiated Date: [] Patient: Jb Ghotra a 55 y/o M admitted on 04/01/21 for CHF, Wounds. Chief Complaint: Discharge diagnosis * Acute on chronic CHF exacerbation: Managed with aggressive care including daily weights/restriction/diuresis. 2D echocardiogram LVEF 55-60%, signs of diastolic dysfunction and pulmonary HTN, continue VALERIA inhibitor/diuretics. Patient did not tolerate beta-madhavi due to bradycardia. * Acute on chronic hypoxic respiratory failure secondary to decompensated heart failure. Continue oxygen to maintain sats above 92% * Left lower extremity cellulitis: Proteus mirabilis/trabeculectomy on cultures. Continue Augmentin for 30 days per ID recommendations. Follow-up with ID clinic as outpatient. Also continue follow-up wound care at [facility] * Atrial fibrillation, rate controlled. Not on anticoagulation. Continue aspirin * microcytic hypochromic anemia: Stable Brief hospital course Mr. Ghotra is a 55 year old M history of diastolic CHF, chronic bilateral lower extremity swelling, presenting with a couple day history of acute on chronic shortness of breath as well as 3 months history of worsening swelling and skin breakdown of the left lower extremities. Patient is complaining of acute on chronic shortness of breath over the past couple of days and he does not use oxygen at home. He denies any cough, chest pain, wheezing, or sputum production. He denies any fever or chills. In addition, he noticed worsening swelling, skin breakdown, as well as burning pain 7 out of 10 constant of his left lower extremities. He has not been treated with antibiotics. He presented to [facility] ER for his symptoms and he was admitted on March 31, 2021. The general surgeons was consulted and he recommended patient is to be transferred to our facility for dedicated wound care consult. 04/02/21: Patient is c/o mild to moderate burning pain of his left lower leg. c/o SOB. Still on 4L/min oxygen. Denies chest pain. Denies fever or chills or sweating. Wound and blood cultures no growth to date. 04/03/21: Afebrile overnight. Wound culture growing gram negative bacillus. On 3L/min oxygen. Denies leg pain. Denies fever or chills. 04/04/21: Afebrile overnight. On 2L/min oxygen. Wound culture growing gram negative bacillus and strep dysgalactiae. C/o mild left leg pain. Denies fever or chills or sweating. 04/05/21: Afebrile overnight. On 1L/min oxygen. Wound culture growing gram negative bacillus and strep dysgalactiae. C/o mild left leg pain. Denies fever or chills or sweating. 04/06/21: Afebrile overnight. On 1L/min oxygen. Wound culture growing Proteus mirabilis and Strep dysgalactiae. Denies left leg pain. Denies fever or chills or sweating. 04/07/21: Afebrile overnight. Tolerating room air. Wound culture growing Proteus mirabilis and Strep dysgalactiae. c/o mild left leg pain when ambulating. Denies fever or chills or sweating 04/08-patient continuing on cefepime per ID recommendations. Will transition to oral Augmentin on 04/09. Continue to diurese. Feels a lot better. DC Castillo's catheter today. Ambulate/continue therapies. Patient reluctant to move to SNF. Will likely discharge home with outpatient rehab/wound care/antibiotics per ID recommendations. We will follow-up with ID clinic as outpatient on discharge. 04/09-. Patient doing a lot better. No overnight events. Ambulating with assistance. Wound care ongoing. Transition to oral Augmentin per ID. Discharging home with advised to follow-up with PCP/wound care/outpatient rehab and continue antibiotics. Will follow-up with ID clinic as advised. Date of admission: 04/01/21 15:36 Discharge date: 04/09/21 Primary care physician: Unknown Unknown Consults: 04/01/21 16:14 Consult to Physician [CONS] Routine Comment: Consulting Provider: Chris Molina Reason For Exam: Physician to Consult 04/02/21 09:26 Consult to Infectious Disease [CONS] Routine Comment: Consulting Provider: Gibran Luna Reason For Exam: Physician to Consult 04/02/21 13:26 Consult to Physician [CONS] Routine Comment: nail overgrowth and deformity Consulting Provider: Danish Bourgeois Reason For Exam: Physician to Consult Discharge Meds Discharge Medications Home Medications amoxicillin-pot clavulanate 1 tab PO BID #60 tab 04/09/21 [Rx Last Taken Unknown] aspirin 81 mg PO DAILY #30 tab 04/09/21 [Rx Last Taken Unknown] furosemide 40 mg PO BIDD #6 tab 04/09/21 [Rx Last Taken Unknown] lisinopril 2.5 mg PO QDAY #30 tab 04/09/21 [Rx Last Taken Unknown] COURSE Hospital Course Hospital course: . Discharge diagnosis: Decompensated heart failure/lower extremity redness Time Spent with Patient Time attestation: Total time spent providing and/or coordinating discharge services: EXAM Constitutional Vitals: Temp Pulse Resp BP Pulse Ox 96.9 F L 72 16 151/94 94 04/09/21 08:00 04/09/21 08:00 04/09/21 08:00 04/09/21 08:00 04/09/21 08:00 Discharge Plan Patient/Caregiver Discharge Instructions Activity: increase activity as tolerated Diet: Regular Diet Activity Restrictions/Additional Instructions: Outpatient wound care at [facility]. Instructions per Dr. Don Home oxygen to maintain sats above 92 Continue diuretics/limb elevation recommend increased use of remedy lotion. oral Augmentin twice daily for 30 days. 2 refills. ID clinic follow-up in clinic in 2 weeks. Prescriptions: New amoxicillin-pot clavulanate 875-125 mg Tablet 1 tab PO BID Qty: 60 RF: 0 furosemide 40 mg Tablet 40 mg PO BIDD Qty: 6 RF: 0 aspirin 81 mg Tablet,Chewable 81 mg PO DAILY Qty: 30 RF: 0 lisinopril 2.5 mg tablet 2.5 mg PO QDAY Qty: 30 RF: 0 Discontinued furosemide 40 mg tablet 40 - 60 mg PO DAILY MDD 60 RF: 0 ibuprofen [Advil] 200 mg Tablet 200 mg PO Q6H MDD 800 PRN (Reason: Pain) RF: 0 Follow Up Plan Patient Disposition: Home, Self-Care Rehab Potential: Good I certify that the patient requires SNF services: No Overall status at discharge: patient is progressing back to baseline Discharge Orders: Discharge Order (Routine); Ordered 04/09/21 Ordered By: Maurice Mcmullen
[2021-04-09] MEDS: AMOXICILLIN/POTASSIUM CLAV 875 MG TABLET PO SCH ×2 (10:46→18:11)
== END 2021-04-09 18:20 | disposition home or self-care (01) | DRG 291 ==
LOC: MEDSUR 15:36
PROVIDERS: ADMIT Internal Medicine; ATTEND Internal Medicine